=== PATIENT | male | born 1970 | race Hispanic/Latino ===

== ENCOUNTER 2021-02-16 10:00 | Inpatient (IN) | payer OTHER ==
[2021-03-21] MEDS ORDERED: Fentanyl 250 MCG/5 ML VIAL ONE (06:39)
[2021-03-21] MEDS ORDERED: PROPOFOL 200 MG/20 ML VIAL ONE (06:43)
[2021-03-21] MEDS ORDERED: Rocuronium Bromide 10 MG/ML (10ML VIAL) ONE (06:43)
[2021-03-21] MEDS ORDERED: Ondansetron PF 4 MG/2 ML Vial ONE (06:43)
[2021-03-21] MEDS ORDERED: Dexamethasone 20 MG/5 ML VIAL ONE (06:43)
[2021-03-21] MEDS ORDERED: PHENYLEPHRINE-NS 100 MCG/ML 10 ML SYRINGE ONE ×2 (06:43→09:42)
[2021-03-21] MEDS ORDERED: Lidocaine 1% PF 5 ML VIAL ONE (06:43)
[2021-03-21] MEDS ORDERED: Meperidine HCl/PF 25 MG/ML VIAL SLOW IVP PRN (07:04)
[2021-03-21] MEDS ORDERED: Promethazine HCl 25 MG/ML VIAL SLOW IVP PRN (07:04)
[2021-03-21] MEDS ORDERED: Bupivacaine 0.25% HCL 30 ML VIAL ONE (07:04)
[2021-03-21] MEDS ORDERED: Promethazine HCl 25 MG/ML VIAL IM PRN ×2 (07:04)
[2021-03-21] MEDS ORDERED: Ondansetron HCl/PF 4 MG/2 ML Vial IVP PRN (07:04)
[2021-03-21] MEDS ORDERED: diphenhydrAMINE 25 MG CAP PO PRN (07:04)
[2021-03-21] MEDS ORDERED: Lidocaine 1% w/Epinephrine 1:100K 20 ML VIAL ONE (07:04)
[2021-03-21] MEDS ORDERED: HYDROmorphone 2 MG/ML VIAL SLOW IVP PRN (07:04)
[2021-03-21] MEDS ORDERED: diphenhydrAMINE 50 MG/ML VIAL IVP PRN (07:04)
[2021-03-21] MEDS ORDERED: Morphine Sulfate 2 MG/ML SYRINGE SLOW IVP PRN (07:04)
[2021-03-21] MEDS ORDERED: fentaNYL Citrate/PF 2,000 MCG in Sodium Chloride 0.9% 60 ML IV PRN (07:04)
[2021-03-21] MEDS ORDERED: Ondansetron PF 4 MG/2 ML Vial IVP PRN (07:04)
[2021-03-21] MEDS ORDERED: Zolpidem Tartrate 5 MG TAB PO PRN (07:04)
[2021-03-21] MEDS ORDERED: diphenhydrAMINE 50 MG/ML VIAL IM PRN (07:04)
[2021-03-21] MEDS ORDERED: Naloxone HCl 0.4 mg/ml Vial IV PRN (07:04)
[2021-03-21] MEDS ORDERED: SUGAMMADEX SODIUM 500 MG/5 ML VIAL ONE (07:14)
[2021-03-21] MEDS ORDERED: Communication Order-Pharmacy FS SCH (07:15)
[2021-03-21] MEDS ORDERED: hydrALAZINE 20 MG/ML VIAL SLOW IVP PRN (11:09)
[2021-03-21] MEDS ORDERED: Dextrose 50% Abboject 50 ML SYRINGE SLOW IVP PRN (11:09)
[2021-03-21] MEDS ORDERED: Sodium Chloride 0.9% 1,000 ML IV SCH (11:09)
[2021-03-21] MEDS ORDERED: Dextrose 5% in Water 1,000 ML IV PRN (11:09)
[2021-03-21] MEDS ORDERED: Aspirin 81 mg Enteric Coated Tablet PO SCH (12:15)
[2021-03-21] MEDS ORDERED: Docusate 100 MG CAP PO SCH (12:15)
[2021-03-21 16:06] VITALS: BMI 30.2
[2021-03-21] MEDS: Sevelamer Carbonate 800 MG TAB PO SCH ×2 (16:22→16:31)
[2021-03-21] MEDS: Insulin Regular 300 UNITS/3 ML VIAL SC PRN ×2 (16:31→22:57)
[2021-03-21 20:15] LABS: #Lymphocytes 0.8 thou/uL (1.20-3.40); #Monocytes 0.8 thou/uL (0.11-0.59); #Neutrophils 16.7 thou/uL (1.40-6.50); %Eosinophils 0.1 % (0.0-10.0); %Lymphocytes 4.6 % (21.0-51.0); %Monocytes 4.3 % (0.0-10.0); Hemoglobin 9.8 g/dL (14.0-18.0); Mean Corpuscular HGB CONC 33.5 g/dL (32.0-36.0); Mean Corpuscular Hemoglobin 31.2 pg (27.0-31.0); Mean Corpuscular Volume 93.3 fL (78.0-98.0); Mean Platelet Volume 6.9 fL (7.4-10.4); Platelet Count 300 thou/uL (130-400); RBC Distribution Width 15.9 % (11.5-14.5); Red Blood Cell (RBC) Count 3.15 mill/uL (4.70-6.10); White Blood Cell (WBC) Count 18.3 thou/uL (4.8-10.8)
[2021-03-21 20:34] LABS: Albumin 3.6 g/dL (3.5-5.0); Anion Gap 24 mmol/L (10-20); BUN (Urea Nitrogen) 70 mg/dL (8.4-25.7); BUN/Creatinine Ratio 4.06; Calc. Creatinine Clearance 6 mL/min (70-130); Calcium 7.7 mg/dL (7.8-10.44); Carbon Dioxide 18 mmol/L (22-29); Chloride 100 mmol/L (98-107); Glucose 283 mg/dL (70-105); Phosphorus 5.9 mg/dL (2.3-4.7); Sodium 135 mmol/L (136-145)
[2021-03-21 20:41] LABS: Potassium 6.9 mmol/L (3.5-5.1)
[2021-03-21] MEDS: hydrALAZINE 25 MG TAB PO SCH (22:54)
[2021-03-21] MEDS: Famotidine/PF 20 mg/2ml Vial SLOW IVP SCH (22:55)
[2021-03-21] MEDS: Docusate 100 MG CAP PO SCH (22:55)
[2021-03-22] MEDS: Insulin Regular 300 UNITS/3 ML VIAL SC PRN ×5 (03:46→21:22)
[2021-03-22 07:33] LABS: #Lymphocytes 1.2 thou/uL (1.20-3.40); #Monocytes 1.2 thou/uL (0.11-0.59); #Neutrophils 11.6 thou/uL (1.40-6.50); %Basophils 0.1 % (0.0-1.0); %Lymphocytes 8.6 % (21.0-51.0); %Monocytes 8.3 % (0.0-10.0); %Neutrophils 83.1 % (42.0-75.0); Hemoglobin 8.9 g/dL (14.0-18.0); Mean Corpuscular HGB CONC 32.5 g/dL (32.0-36.0); Mean Corpuscular Hemoglobin 30.8 pg (27.0-31.0); Mean Platelet Volume 7.4 fL (7.4-10.4); Platelet Count 313 thou/uL (130-400); RBC Distribution Width 15.9 % (11.5-14.5); Red Blood Cell (RBC) Count 2.89 mill/uL (4.70-6.10)
[2021-03-22 07:54] LABS: Anion Gap 22 mmol/L (10-20); BUN (Urea Nitrogen) 74 mg/dL (8.4-25.7); Calc. Creatinine Clearance 6 mL/min (70-130); Calcium 7.7 mg/dL (7.8-10.44); Carbon Dioxide 19 mmol/L (22-29); Chloride 100 mmol/L (98-107); Glucose 222 mg/dL (70-105); Potassium 5.6 mmol/L (3.5-5.1); Sodium 135 mmol/L (136-145)
[2021-03-22] MEDS: Enoxaparin Sodium 30 MG/0.3 ML SYRINGE SC SCH (08:47)
[2021-03-22] MEDS: Losartan 25 MG TAB PO SCH (08:48)
[2021-03-22] MEDS: Multivit, Therapeutic 1 TAB PO SCH (08:48)
[2021-03-22] MEDS: Calcitriol 0.25 MCG CAP PO SCH (08:48)
[2021-03-22] MEDS: Aspirin 81 mg Enteric Coated Tablet PO SCH (08:48)
[2021-03-22] MEDS: Sevelamer Carbonate 800 MG TAB PO SCH ×3 (08:48→17:05)
[2021-03-22] MEDS: Docusate 100 MG CAP PO SCH ×2 (08:49→20:56)
[2021-03-22] MEDS ORDERED: Dextrose 50% Abboject 50 ML SYRINGE SLOW IVP PRN (13:41)
[2021-03-22] MEDS ORDERED: Dextrose 5% in Water 1,000 ML IV PRN (13:41)
[2021-03-22 19:12] LABS: Albumin 3.4 g/dL (3.5-5.0); Anion Gap 19 mmol/L (10-20); BUN (Urea Nitrogen) 72 mg/dL (8.4-25.7); Calc. Creatinine Clearance 6 mL/min (70-130); Calcium 7.8 mg/dL (7.8-10.44); Carbon Dioxide 23 mmol/L (22-29); Chloride 99 mmol/L (98-107); Glucose 235 mg/dL (70-105); Phosphorus 6.6 mg/dL (2.3-4.7); Potassium 5.1 mmol/L (3.5-5.1); Sodium 136 mmol/L (136-145)
[2021-03-22] MEDS: hydrALAZINE 25 MG TAB PO SCH (20:56)
[2021-03-22] MEDS: Famotidine/PF 20 mg/2ml Vial SLOW IVP SCH (20:56)
[2021-03-23 07:58] LABS: Albumin 3.2 g/dL (3.5-5.0); Anion Gap 20 mmol/L (10-20); BUN (Urea Nitrogen) 76 mg/dL (8.4-25.7); Calc. Creatinine Clearance 6 mL/min (70-130); Calcium 7.8 mg/dL (7.8-10.44); Carbon Dioxide 22 mmol/L (22-29); Chloride 99 mmol/L (98-107); Glucose 125 mg/dL (70-105); Phosphorus 7.9 mg/dL (2.3-4.7); Potassium 5.2 mmol/L (3.5-5.1); Sodium 136 mmol/L (136-145)
[2021-03-23 08:01] LABS: #Basophils 0.1 thou/uL (0.0-0.2); #Eosinphils 0.2 thou/uL (0.0-0.7); #Monocytes 0.9 thou/uL (0.11-0.59); #Neutrophils 8.4 thou/uL (1.40-6.50); %Basophils 0.5 % (0.0-1.0); %Eosinophils 1.4 % (0.0-10.0); %Lymphocytes 17.6 % (21.0-51.0); %Monocytes 7.4 % (0.0-10.0); %Neutrophils 73.2 % (42.0-75.0); Hemoglobin 8.6 g/dL (14.0-18.0); Mean Corpuscular HGB CONC 33.7 g/dL (32.0-36.0); Mean Corpuscular Hemoglobin 31.9 pg (27.0-31.0); Mean Corpuscular Volume 94.7 fL (78.0-98.0); Mean Platelet Volume 7.1 fL (7.4-10.4); Platelet Count 252 thou/uL (130-400); RBC Distribution Width 15.9 % (11.5-14.5); White Blood Cell (WBC) Count 11.5 thou/uL (4.8-10.8)
[2021-03-23] MEDS ORDERED: traMADol HCl 50 MG TAB PO PRN (08:43)
[2021-03-23] MEDS: Losartan 25 MG TAB PO SCH (08:52)
[2021-03-23] MEDS: Enoxaparin Sodium 30 MG/0.3 ML SYRINGE SC SCH (08:53)
[2021-03-23] MEDS: Lantus 1000 UNITS/10 ML VIAL SC SCH (08:53)
[2021-03-23] MEDS: Sevelamer Carbonate 800 MG TAB PO SCH ×3 (08:53→17:44)
[2021-03-23] MEDS: Calcitriol 0.25 MCG CAP PO SCH (08:53)
[2021-03-23] MEDS: Multivit, Therapeutic 1 TAB PO SCH (08:53)
[2021-03-23] MEDS: Docusate 100 MG CAP PO SCH ×2 (08:53→21:10)
[2021-03-23] MEDS: Aspirin 81 mg Enteric Coated Tablet PO SCH (08:53)
[2021-03-23] MEDS ORDERED: Non-Formulary Item 1 EACH (Insulin Glargine,Hum.Rec.Anlog [Basaglar Kwikpen U-100] 100 UN SQ SCH (09:00)
[2021-03-23] MEDS ORDERED: Morphine 4 MG/ML VIAL SLOW IVP PRN ×2 (09:04→17:17)
[2021-03-23] MEDS: HYDROcodone/Acetaminophen 5/325 mg Tablet PO PRN ×2 (11:22→15:09)
[2021-03-23] MEDS: Insulin Regular 300 UNITS/3 ML VIAL SC PRN (13:14)
[2021-03-23] MEDS ORDERED: HYDROcodone/Acetaminophen 5/325 mg Tablet PO PRN (17:16)
[2021-03-23] MEDS: hydrALAZINE 25 MG TAB PO SCH (21:10)
[2021-03-23] MEDS: Famotidine/PF 20 mg/2ml Vial SLOW IVP SCH (21:11)
[2021-03-24] MEDS: Insulin Regular 300 UNITS/3 ML VIAL SC PRN (06:18)
[2021-03-24 06:32] LABS: Hemoglobin 8.8 g/dL (14.0-18.0); Mean Corpuscular HGB CONC 35.1 g/dL (32.0-36.0); Mean Corpuscular Hemoglobin 32.8 pg (27.0-31.0); Mean Corpuscular Volume 93.3 fL (78.0-98.0); Platelet Count 226 thou/uL (130-400); RBC Distribution Width 16.1 % (11.5-14.5); Red Blood Cell (RBC) Count 2.69 mill/uL (4.70-6.10); White Blood Cell (WBC) Count 10.1 thou/uL (4.8-10.8)
[2021-03-24 06:50] LABS: Anion Gap 19 mmol/L (10-20); BUN (Urea Nitrogen) 84 mg/dL (8.4-25.7); Calc. Creatinine Clearance 6 mL/min (70-130); Calcium 8.1 mg/dL (7.8-10.44); Carbon Dioxide 24 mmol/L (22-29); Glucose 205 mg/dL (70-105)
[2021-03-24 06:57] LABS: Chloride 97 mmol/L (98-107); Potassium 4.9 mmol/L (3.5-5.1); Sodium 135 mmol/L (136-145)
[2021-03-24] MEDS: Sevelamer Carbonate 800 MG TAB PO SCH ×2 (07:55→11:33)
[2021-03-24] MEDS: Losartan 25 MG TAB PO SCH (07:55)
[2021-03-24] MEDS: Calcitriol 0.25 MCG CAP PO SCH (07:55)
[2021-03-24] MEDS: Multivit, Therapeutic 1 TAB PO SCH (07:55)
[2021-03-24] MEDS: Aspirin 81 mg Enteric Coated Tablet PO SCH (07:55)
[2021-03-24] MEDS: Docusate 100 MG CAP PO SCH (07:55)
[2021-03-24] MEDS: Enoxaparin Sodium 30 MG/0.3 ML SYRINGE SC SCH (07:56)
[2021-03-24] MEDS: Lantus 1000 UNITS/10 ML VIAL SC SCH (07:56)
[2021-03-24] MEDS ORDERED: cloNIDine 0.2 MG TAB PO SCH ×2 (12:00→21:00)
[2021-03-24 13:41] VITALS: BP 183/81; TEMP 97.8
[2021-03-24] MEDS ORDERED: Carvedilol 25 MG TAB PO SCH (13:45)
== END 2021-03-24 14:17 | disposition home or self-care (01) | DRG 656 ==
LOC: EDSTATUS 02-21 10:00 → SURG A 03-21 06:19 → T4-A 03-21 15:05
PROVIDERS: ADMIT Urology; ATTEND Urology
PROC: 0TT00ZZ Resection of Right Kidney, Open Approach (ICD-10-PCS; principal; 2021-03-21)
PROC: 8E0WXCZ Robotic Assisted Procedure of Trunk Region (ICD-10-PCS; 2021-03-21)
PROC: 5A1D70Z Performance of Urinary Filtration, Intermittent, Less than 6 Hours Per Day (ICD-10-PCS; 2021-03-21)
DX: C64.1 Malignant neoplasm of right kidney, except renal pelvis (principal); N18.6 End stage renal disease; Z20.822 Contact with and (suspected) exposure to COVID-19; E11.22 Type 2 diabetes mellitus with diabetic chronic kidney disease; N52.9 Male erectile dysfunction, unspecified; E78.5 Hyperlipidemia, unspecified; I25.10 Atherosclerotic heart disease of native coronary artery without angina pectoris; E11.40 Type 2 diabetes mellitus with diabetic neuropathy, unspecified; E66.9 Obesity, unspecified; Z99.2 Dependence on renal dialysis; Z68.31 Body mass index [BMI] 31.0-31.9, adult; Z79.82 Long term (current) use of aspirin; Z79.4 Long term (current) use of insulin; Z79.899 Other long term (current) drug therapy
CPT/HCPCS: 36415; 36416; 80048; 80069; 85025; 85027; 86850; 86900; 86901; 88307; 90945; G0257; J0690; J1100; J1650; J1815; J2405; J2704; J3010; S0020; S0028

== ENCOUNTER 2021-03-16 08:12 | Outpatient (CLI) | payer OTHER ==
[2021-03-16 10:47] LABS: Hemoglobin 11.8 g/dL (13.5-17.5); Mean Corpuscular HGB CONC 32.6 g/dL (32.0-36.0); Mean Corpuscular Hemoglobin 30.3 pg (27.0-33.0); Mean Corpuscular Volume 92.8 fl (81.2-95.1); Platelet Count 290 10x3/uL (150-450); White Blood Cell (WBC) Count 8.4 10x3/uL (3.5-10.5)
[2021-03-16 11:11] LABS: Anion Gap 22 mmol/L (10-20); BUN (Urea Nitrogen) 61 mg/dL (8.4-25.7); Calc. Creatinine Clearance 0 mL/min (70-130); Calcium 9.2 mg/dL (7.8-10.44); Carbon Dioxide 27 mmol/L (22-29); Chloride 102 mmol/L (98-107); Glucose 120 mg/dL (70-105); PTT 26.5 sec (22.0-33.0); Potassium 5.7 mmol/L (3.5-5.1); Prothrombin Time 10.9 sec (9.5-12.1); Sodium 145 mmol/L (136-145)
[2021-03-16 18:44] LABS: SARS-CoV-2 PCR by NAA Not Detected (NotDetected)
== END 2021-03-16 08:13 | disposition home or self-care (01) ==
LOC: LABBT 08:12
PROVIDERS: ATTEND Urology
DX: Z01.818 Encounter for other preprocedural examination (principal); C61 Malignant neoplasm of prostate; Z20.822 Contact with and (suspected) exposure to COVID-19
CPT/HCPCS: 80048; 85027; 85610; 85730; 86850; 86900; 86901; 87635; 93005; 93010; U0003; U0005

== ENCOUNTER 2021-06-23 10:22 | Outpatient (CLI) | payer OTHER ==
[2021-06-24 01:30] LABS: SARS-CoV-2 PCR by NAA Not Detected (NotDetected)
== END 2021-06-23 10:23 | disposition home or self-care (01) ==
LOC: LABBT 10:22
PROVIDERS: ATTEND Internal Medicine Hematology & Oncology
DX: Z01.812 Encounter for preprocedural laboratory examination (principal); Z20.822 Contact with and (suspected) exposure to COVID-19
CPT/HCPCS: U0003; U0005

== ENCOUNTER 2021-07-06 08:11 | Day surgery (SDC) | payer OTHER ==
[2021-07-06 08:51] LABS: INR-International Normal Ratio 1.1
[2021-07-06 08:52] LABS: PTT 33.9 sec (22.9-36.1)
[2021-07-06 09:32] VITALS: BMI 29.3
[2021-07-06 09:37] VITALS: TEMP 98
[2021-07-06 13:04] VITALS: BP 179/111
== END 2021-07-06 13:15 | disposition home or self-care (01) ==
LOC: CT 08:11
PROVIDERS: ATTEND Internal Medicine Hematology & Oncology
PROC: 0TB13ZX Excision of Left Kidney, Percutaneous Approach, Diagnostic (ICD-10-PCS; principal; 2021-07-06)
DX: C64.2 Malignant neoplasm of left kidney, except renal pelvis (principal); E11.9 Type 2 diabetes mellitus without complications; I10 Essential (primary) hypertension; F10.11 Alcohol abuse, in remission; N28.9 Disorder of kidney and ureter, unspecified; Z86.73 Personal history of transient ischemic attack (TIA), and cerebral infarction without residual deficits; Z79.4 Long term (current) use of insulin; Z79.82 Long term (current) use of aspirin; Z79.899 Other long term (current) drug therapy; Z90.5 Acquired absence of kidney; Z99.2 Dependence on renal dialysis
CPT/HCPCS: 50200; 77012; 85610; 85730; 88305; 88333; 88334; 88341; 88342

== ENCOUNTER → 2021-07-17 | Day surgery (SDC) | payer OTHER | LOC: CT 09:18 → RAD 09:19 | DX: C64.2 Malignant neoplasm of left kidney, except renal pelvis (principal) | CPT/HCPCS: 71260; 78306; A9503 ==

== ENCOUNTER 2021-09-29 17:17 | Inpatient (IN) | payer OTHER ==
[2021-09-29 17:55] LABS: #Basophils 0.1 thou/uL (0.0-0.2); #Eosinphils 0.4 thou/uL (0.0-0.7); #Lymphocytes 1.4 thou/uL (1.20-3.40); #Monocytes 1.3 thou/uL (0.11-0.59); #Neutrophils 7.7 thou/uL (1.40-6.50); %Basophils 0.9 % (0.0-1.0); %Eosinophils 3.4 % (0.0-10.0); %Lymphocytes 12.7 % (21.0-51.0); %Neutrophils 70.9 % (42.0-75.0); Hemoglobin 9.6 g/dL (14.0-18.0); Mean Corpuscular HGB CONC 35.4 g/dL (32.0-36.0); Mean Corpuscular Hemoglobin 31.3 pg (27.0-31.0); Mean Corpuscular Volume 88.3 fL (78.0-98.0); Mean Platelet Volume 6.6 fL (7.4-10.4); Platelet Count 345 thou/uL (130-400); RBC Distribution Width 15.9 % (11.5-14.5); Red Blood Cell (RBC) Count 3.05 mill/uL (4.70-6.10); White Blood Cell (WBC) Count 10.8 thou/uL (4.8-10.8)
[2021-09-29] MEDS ORDERED: Vancomycin 25 MG/ML Oral SOLN PO SCH (18:15)
[2021-09-29 18:19] LABS: ALT (SGPT) 25 U/L (8-55); AST (SGOT) 24 U/L (5-34); Albumin 3.1 g/dL (3.5-5.0); Alkaline Phosphatase 100 U/L (40-110); Anion Gap 20 mmol/L (10-20); BUN (Urea Nitrogen) 44 mg/dL (8.4-25.7); Bilirubin, Total 0.5 mg/dL (0.2-1.2); Calc. Creatinine Clearance 0 mL/min (70-130); Calcium 7.8 mg/dL (7.8-10.44); Carbon Dioxide 16 mmol/L (22-29); Chloride 101 mmol/L (98-107); Glucose 197 mg/dL (70-105); Protein, Total 6.1 g/dL (6.0-8.3); Sodium 133 mmol/L (136-145)
[2021-09-29 22:05] LABS: SARS-CoV-2 NAA Rapid Test Not Detected (NotDetected)
[2021-09-29] MEDS ORDERED: Dextrose 5% in Water 1,000 ML IV PRN (22:23)
[2021-09-29] MEDS ORDERED: Dextrose 50% Abboject 50 ML SYRINGE SLOW IVP PRN (22:23)
[2021-09-29] MEDS ORDERED: Cholestyramine/Aspartame 4 gm Packet PO SCH (22:30)
[2021-09-30] MEDS: Lactated Ringer's 1,000 ML IV SCH ×4 (01:38→21:11)
[2021-09-30] MEDS: Vancomycin 25 MG/ML Oral SOLN PO SCH ×4 (04:13→21:10)
[2021-09-30 04:58] LABS: Anion Gap 16 mmol/L (10-20); BUN (Urea Nitrogen) 47 mg/dL (8.4-25.7); Calc. Creatinine Clearance 6 mL/min (70-130); Calcium 8.3 mg/dL (7.8-10.44); Carbon Dioxide 17 mmol/L (22-29); Chloride 104 mmol/L (98-107); Glucose 157 mg/dL (70-105); Potassium 3.7 mmol/L (3.5-5.1); Sodium 133 mmol/L (136-145)
[2021-09-30] MEDS: Sevelamer Carbonate 800 MG TAB PO SCH ×3 (08:23→16:12)
[2021-09-30] MEDS: Aspirin 81 mg Enteric Coated Tablet PO SCH (09:37)
[2021-09-30] MEDS: Heparin 5,000 UNITS/ML VIAL SC SCH ×3 (09:37→21:05)
[2021-09-30] MEDS: Cholestyramine/Aspartame 4 gm Packet PO SCH ×2 (09:38→21:11)
[2021-09-30] MEDS: Calcitriol 0.25 MCG CAP PO SCH (09:38)
[2021-09-30] MEDS ORDERED: EPSOM SALT TOP PRN (14:11)
[2021-10-01] MEDS: Vancomycin 25 MG/ML Oral SOLN PO SCH ×4 (03:37→21:49)
[2021-10-01 07:26] LABS: ALT (SGPT) 27 U/L (8-55); AST (SGOT) 18 U/L (5-34); Albumin 2.8 g/dL (3.5-5.0); Alkaline Phosphatase 105 U/L (40-110); Anion Gap 19 mmol/L (10-20); BUN (Urea Nitrogen) 39 mg/dL (8.4-25.7); Bilirubin, Total 0.4 mg/dL (0.2-1.2); Calc. Creatinine Clearance 6 mL/min (70-130); Calcium 7.8 mg/dL (7.8-10.44); Carbon Dioxide 19 mmol/L (22-29); Chloride 102 mmol/L (98-107); Globulin 2.8 g/dL (2.4-3.5); Glucose 198 mg/dL (70-105); Potassium 3.5 mmol/L (3.5-5.1); Protein, Total 5.6 g/dL (6.0-8.3); Sodium 136 mmol/L (136-145)
[2021-10-01] MEDS: Sevelamer Carbonate 800 MG TAB PO SCH ×3 (09:25→17:27)
[2021-10-01] MEDS: Cholestyramine/Aspartame 4 gm Packet PO SCH ×2 (09:25→22:44)
[2021-10-01] MEDS: Aspirin 81 mg Enteric Coated Tablet PO SCH (09:25)
[2021-10-01] MEDS: Calcitriol 0.25 MCG CAP PO SCH (09:26)
[2021-10-01] MEDS: Heparin 5,000 UNITS/ML VIAL SC SCH ×3 (09:26→21:48)
[2021-10-01] MEDS: Lactated Ringer's 1,000 ML IV SCH (15:17)
[2021-10-01] MEDS: HumaLOG 300 UNITS/3 ML VIAL SC PRN (21:50)
[2021-10-02] MEDS: Lactated Ringer's 1,000 ML IV SCH ×3 (03:25→22:05)
[2021-10-02] MEDS: Vancomycin 25 MG/ML Oral SOLN PO SCH ×4 (04:04→22:04)
[2021-10-02 05:44] LABS: ALT (SGPT) 24 U/L (8-55); AST (SGOT) 16 U/L (5-34); Albumin 2.7 g/dL (3.5-5.0); Alkaline Phosphatase 92 U/L (40-110); Anion Gap 16 mmol/L (10-20); BUN (Urea Nitrogen) 34 mg/dL (8.4-25.7); Bilirubin, Total 0.4 mg/dL (0.2-1.2); Calc. Creatinine Clearance 6 mL/min (70-130); Calcium 8.3 mg/dL (7.8-10.44); Carbon Dioxide 22 mmol/L (22-29); Chloride 100 mmol/L (98-107); Globulin 3.5 g/dL (2.4-3.5); Glucose 191 mg/dL (70-105); Protein, Total 6.2 g/dL (6.0-8.3); Sodium 135 mmol/L (136-145)
[2021-10-02] MEDS: HumaLOG 300 UNITS/3 ML VIAL SC PRN (06:23)
[2021-10-02] MEDS: Aspirin 81 mg Enteric Coated Tablet PO SCH (08:37)
[2021-10-02] MEDS: Heparin 5,000 UNITS/ML VIAL SC SCH ×3 (08:37→22:05)
[2021-10-02] MEDS: Calcitriol 0.25 MCG CAP PO SCH (08:37)
[2021-10-02] MEDS: Sevelamer Carbonate 800 MG TAB PO SCH ×3 (08:37→16:31)
[2021-10-02] MEDS: Cholestyramine/Aspartame 4 gm Packet PO SCH ×2 (11:00→23:02)
[2021-10-02 14:37] LABS: Anion Gap 13 mmol/L (10-20); BUN (Urea Nitrogen) 35 mg/dL (8.4-25.7); Calc. Creatinine Clearance 6 mL/min (70-130); Carbon Dioxide 24 mmol/L (22-29); Chloride 100 mmol/L (98-107); Glucose 190 mg/dL (70-105); Potassium 3.1 mmol/L (3.5-5.1); Sodium 134 mmol/L (136-145)
[2021-10-02] MEDS ORDERED: Potassium Chloride 20 MEQ TAB PO SCH (15:30)
[2021-10-03] MEDS: Vancomycin 25 MG/ML Oral SOLN PO SCH ×4 (03:19→21:06)
[2021-10-03 05:15] LABS: Phosphorus 2.7 mg/dL (2.3-4.7)
[2021-10-03 05:21] LABS: ALT (SGPT) 20 U/L (8-55); AST (SGOT) 16 U/L (5-34); Albumin 2.6 g/dL (3.5-5.0); Alkaline Phosphatase 94 U/L (40-110); Anion Gap 13 mmol/L (10-20); BUN (Urea Nitrogen) 32 mg/dL (8.4-25.7); Bilirubin, Total 0.4 mg/dL (0.2-1.2); Calc. Creatinine Clearance 6 mL/min (70-130); Carbon Dioxide 23 mmol/L (22-29); Chloride 100 mmol/L (98-107); Globulin 3.2 g/dL (2.4-3.5); Glucose 181 mg/dL (70-105); Protein, Total 5.8 g/dL (6.0-8.3); Sodium 133 mmol/L (136-145)
[2021-10-03 05:26] LABS: Potassium 2.9 mmol/L (3.5-5.1)
[2021-10-03] MEDS: HumaLOG 300 UNITS/3 ML VIAL SC PRN ×3 (06:04→17:47)
[2021-10-03] MEDS ORDERED: Potassium Chloride 20 MEQ TAB PO SCH ×3 (06:30→17:45)
[2021-10-03] MEDS: Sevelamer Carbonate 800 MG TAB PO SCH ×3 (09:03→16:44)
[2021-10-03] MEDS: Calcitriol 0.25 MCG CAP PO SCH (09:04)
[2021-10-03] MEDS: Aspirin 81 mg Enteric Coated Tablet PO SCH (09:04)
[2021-10-03] MEDS: Heparin 5,000 UNITS/ML VIAL SC SCH ×3 (09:05→21:05)
[2021-10-03] MEDS: Cholestyramine/Aspartame 4 gm Packet PO SCH ×2 (10:29→22:25)
[2021-10-03 11:52] LABS: Anion Gap 15 mmol/L (10-20); BUN (Urea Nitrogen) 31 mg/dL (8.4-25.7); Calc. Creatinine Clearance 6 mL/min (70-130); Calcium 7.8 mg/dL (7.8-10.44); Carbon Dioxide 21 mmol/L (22-29); Chloride 99 mmol/L (98-107); Glucose 164 mg/dL (70-105); Magnesium 1.2 mg/dL (1.6-2.6); Sodium 132 mmol/L (136-145)
[2021-10-03 12:02] LABS: Potassium 2.9 mmol/L (3.5-5.1)
[2021-10-03] MEDS ORDERED: Magnesium 2 GM/50 ML 2 GM in Premix Bag 1 BAG IVPB SCH (12:15)
[2021-10-03 17:02] LABS: Anion Gap 14 mmol/L (10-20); BUN (Urea Nitrogen) 32 mg/dL (8.4-25.7); Calc. Creatinine Clearance 6 mL/min (70-130); Calcium 7.8 mg/dL (7.8-10.44); Carbon Dioxide 21 mmol/L (22-29); Chloride 100 mmol/L (98-107); Glucose 169 mg/dL (70-105); Potassium 3.2 mmol/L (3.5-5.1); Sodium 132 mmol/L (136-145)
[2021-10-03] MEDS: Lactated Ringer's 1,000 ML IV SCH (19:23)
[2021-10-04] MEDS: Vancomycin 25 MG/ML Oral SOLN PO SCH ×2 (03:11→10:30)
[2021-10-04 04:56] LABS: ALT (SGPT) 20 U/L (8-55); AST (SGOT) 17 U/L (5-34); Alkaline Phosphatase 107 U/L (40-110); Anion Gap 15 mmol/L (10-20); BUN (Urea Nitrogen) 32 mg/dL (8.4-25.7); Bilirubin, Total 0.4 mg/dL (0.2-1.2); Calc. Creatinine Clearance 6 mL/min (70-130); Calcium 8.4 mg/dL (7.8-10.44); Carbon Dioxide 21 mmol/L (22-29); Chloride 100 mmol/L (98-107); Globulin 3.4 g/dL (2.4-3.5); Glucose 198 mg/dL (70-105); Magnesium 1.6 mg/dL (1.6-2.6); Potassium 3.5 mmol/L (3.5-5.1); Protein, Total 6.4 g/dL (6.0-8.3); Sodium 132 mmol/L (136-145)
[2021-10-04] MEDS: HumaLOG 300 UNITS/3 ML VIAL SC PRN ×2 (06:11→20:40)
[2021-10-04] MEDS ORDERED: Potassium Chloride 20 MEQ TAB PO SCH (08:00)
[2021-10-04] MEDS: Aspirin 81 mg Enteric Coated Tablet PO SCH (09:20)
[2021-10-04] MEDS: Sevelamer Carbonate 800 MG TAB PO SCH ×3 (09:20→16:28)
[2021-10-04] MEDS: Calcitriol 0.25 MCG CAP PO SCH (09:21)
[2021-10-04] MEDS: Cholestyramine/Aspartame 4 gm Packet PO SCH ×2 (10:30→23:17)
[2021-10-04] MEDS: Heparin 5,000 UNITS/ML VIAL SC SCH ×3 (10:31→20:22)
[2021-10-04] MEDS: Lactated Ringer's 1,000 ML IV SCH ×2 (10:34→20:57)
[2021-10-04] MEDS ORDERED: Fidaxomicin 200 MG TAB PO SCH (12:30)
[2021-10-04 14:09] LABS: #Basophils 0.1 thou/uL (0.0-0.2); #Eosinphils 0.3 thou/uL (0.0-0.7); #Lymphocytes 1.4 thou/uL (1.20-3.40); #Monocytes 0.9 thou/uL (0.11-0.59); #Neutrophils 4.9 thou/uL (1.40-6.50); %Basophils 0.9 % (0.0-1.0); %Eosinophils 4.3 % (0.0-10.0); %Lymphocytes 18.8 % (21.0-51.0); %Monocytes 11.7 % (0.0-10.0); %Neutrophils 64.3 % (42.0-75.0); Hemoglobin 8.6 g/dL (14.0-18.0); Mean Corpuscular HGB CONC 34.4 g/dL (32.0-36.0); Mean Corpuscular Hemoglobin 30.3 pg (27.0-31.0); Mean Platelet Volume 5.7 fL (7.4-10.4); Platelet Count 296 thou/uL (130-400); RBC Distribution Width 15.2 % (11.5-14.5); Red Blood Cell (RBC) Count 2.85 mill/uL (4.70-6.10); White Blood Cell (WBC) Count 7.6 thou/uL (4.8-10.8)
[2021-10-04] MEDS: Fidaxomicin 200 MG TAB PO SCH (20:22)
[2021-10-04 23:06] LABS: #Eosinphils 0.2 thou/uL (0.0-0.7); #Lymphocytes 0.6 thou/uL (1.20-3.40); #Neutrophils 4.7 thou/uL (1.40-6.50); %Basophils 0.1 % (0.0-1.0); %Eosinophils 4.3 % (0.0-10.0); %Lymphocytes 10.5 % (21.0-51.0); %Monocytes 0.8 % (0.0-10.0); %Neutrophils 84.3 % (42.0-75.0); Hemoglobin 8.9 g/dL (14.0-18.0); Mean Corpuscular HGB CONC 35.2 g/dL (32.0-36.0); Mean Corpuscular Hemoglobin 30.8 pg (27.0-31.0); Mean Corpuscular Volume 87.4 fL (78.0-98.0); Mean Platelet Volume 5.8 fL (7.4-10.4); Platelet Count 296 thou/uL (130-400); RBC Distribution Width 14.9 % (11.5-14.5); White Blood Cell (WBC) Count 5.5 thou/uL (4.8-10.8)
[2021-10-04 23:26] LABS: Anion Gap 16 mmol/L (10-20); BUN (Urea Nitrogen) 32 mg/dL (8.4-25.7); CRP (Inflammatory) 7.06 mg/dL (= or < 0.5); Calc. Creatinine Clearance 6 mL/min (70-130); Carbon Dioxide 21 mmol/L (22-29); Chloride 97 mmol/L (98-107); Glucose 153 mg/dL (70-105); Magnesium 1.3 mg/dL (1.6-2.6); Potassium 3.4 mmol/L (3.5-5.1); Sodium 131 mmol/L (136-145)
[2021-10-05] MEDS: Ondansetron ODT 4 MG TAB PO PRN ×3 (01:14→20:50)
[2021-10-05] MEDS: Acetaminophen 325 MG TAB PO PRN ×3 (02:12→22:16)
[2021-10-05] MEDS ORDERED: Lactated Ringer's 500 ML IV ONE (04:30)
[2021-10-05 04:51] LABS: #Basophils 0.1 thou/uL (0.0-0.2); #Lymphocytes 0.5 thou/uL (1.20-3.40); #Monocytes 0.5 thou/uL (0.11-0.59); %Basophils 0.5 % (0.0-1.0); %Eosinophils 0.4 % (0.0-10.0); %Lymphocytes 5.1 % (21.0-51.0); %Monocytes 4.6 % (0.0-10.0); %Neutrophils 89.3 % (42.0-75.0); Hemoglobin 8.2 g/dL (14.0-18.0); Mean Corpuscular Hemoglobin 30.3 pg (27.0-31.0); Mean Corpuscular Volume 86.4 fL (78.0-98.0); Mean Platelet Volume 6.2 fL (7.4-10.4); Platelet Count 269 thou/uL (130-400); White Blood Cell (WBC) Count 10.1 thou/uL (4.8-10.8)
[2021-10-05] MEDS: Lactated Ringer's 1,000 ML IV SCH ×4 (04:55→20:36)
[2021-10-05 05:01] LABS: ALT (SGPT) 14 U/L (8-55); AST (SGOT) 14 U/L (5-34); Albumin 2.5 g/dL (3.5-5.0); Alkaline Phosphatase 93 U/L (40-110); Anion Gap 14 mmol/L (10-20); BUN (Urea Nitrogen) 31 mg/dL (8.4-25.7); Bilirubin, Total 0.5 mg/dL (0.2-1.2); Calc. Creatinine Clearance 6 mL/min (70-130); Calcium 7.8 mg/dL (7.8-10.44); Carbon Dioxide 21 mmol/L (22-29); Chloride 97 mmol/L (98-107); Globulin 2.9 g/dL (2.4-3.5); Glucose 207 mg/dL (70-105); Protein, Total 5.4 g/dL (6.0-8.3); Sodium 129 mmol/L (136-145)
[2021-10-05] MEDS: HumaLOG 300 UNITS/3 ML VIAL SC PRN (06:20)
[2021-10-05] MEDS ORDERED: Potassium Chloride 20 MEQ TAB PO SCH (06:45)
[2021-10-05] MEDS: Calcitriol 0.25 MCG CAP PO SCH (09:26)
[2021-10-05] MEDS: Sevelamer Carbonate 800 MG TAB PO SCH ×3 (09:26→17:19)
[2021-10-05] MEDS: Fidaxomicin 200 MG TAB PO SCH ×2 (09:26→20:35)
[2021-10-05] MEDS: Aspirin 81 mg Enteric Coated Tablet PO SCH (09:26)
[2021-10-05] MEDS: Heparin 5,000 UNITS/ML VIAL SC SCH ×3 (09:27→20:35)
[2021-10-05 09:38] LABS: Magnesium 1.2 mg/dL (1.6-2.6)
[2021-10-05] MEDS: Cholestyramine/Aspartame 4 gm Packet PO SCH ×3 (11:23→23:14)
[2021-10-05 17:57] LABS: Anion Gap 15 mmol/L (10-20); BUN (Urea Nitrogen) 31 mg/dL (8.4-25.7); Calc. Creatinine Clearance 6 mL/min (70-130); Carbon Dioxide 21 mmol/L (22-29); Chloride 97 mmol/L (98-107); Glucose 157 mg/dL (70-105); Potassium 3.8 mmol/L (3.5-5.1); Sodium 129 mmol/L (136-145)
[2021-10-05] MEDS ORDERED: MEROPENEM 1 GM/50 ML 1 GM in Premix Bag 1 BAG IVPB SCH (18:45)
[2021-10-05 19:19] LABS: SARS-CoV-2 NAA Rapid Test Not Detected (NotDetected)
[2021-10-05] MEDS ORDERED: Meropenem 1 GM in Sodium Chloride 0.9% 100 ML IVPB SCH (20:45)
[2021-10-05] MEDS ORDERED: Ibuprofen 600 MG TAB PO SCH (22:53)
[2021-10-06] MEDS: Meropenem 500 MG in Sodium Chloride 0.9% 100 ML IVPB SCH (02:24)
[2021-10-06] MEDS: Lactated Ringer's 1,000 ML IV SCH ×4 (04:19→21:14)
[2021-10-06 05:30] LABS: ALT (SGPT) 18 U/L (8-55); AST (SGOT) 22 U/L (5-34); Albumin 2.4 g/dL (3.5-5.0); Alkaline Phosphatase 95 U/L (40-110); Anion Gap 18 mmol/L (10-20); BUN (Urea Nitrogen) 30 mg/dL (8.4-25.7); Bilirubin, Total 0.6 mg/dL (0.2-1.2); Calc. Creatinine Clearance 6 mL/min (70-130); Calcium 8.1 mg/dL (7.8-10.44); Carbon Dioxide 19 mmol/L (22-29); Chloride 97 mmol/L (98-107); Globulin 3.1 g/dL (2.4-3.5); Glucose 161 mg/dL (70-105); Potassium 3.9 mmol/L (3.5-5.1); Protein, Total 5.5 g/dL (6.0-8.3); Sodium 130 mmol/L (136-145)
[2021-10-06 07:29] LABS: Magnesium 1.5 mg/dL (1.6-2.6)
[2021-10-06] MEDS ORDERED: Potassium Chloride 20 MEQ TAB PO SCH ×2 (08:00→09:00)
[2021-10-06] MEDS: Aspirin 81 mg Enteric Coated Tablet PO SCH (08:34)
[2021-10-06] MEDS: Fidaxomicin 200 MG TAB PO SCH ×2 (08:34→21:14)
[2021-10-06] MEDS: Heparin 5,000 UNITS/ML VIAL SC SCH ×3 (08:34→21:14)
[2021-10-06] MEDS: Sevelamer Carbonate 800 MG TAB PO SCH ×3 (08:34→16:50)
[2021-10-06] MEDS: Calcitriol 0.25 MCG CAP PO SCH (08:34)
[2021-10-06] MEDS: EPOETIN ALFA-EPBX (ESRD) 4,000 UNIT/ML VIAL SC SCH (08:35)
[2021-10-06] MEDS ORDERED: Epoetin (ESRD) 20,000 UNITS/ML SC SCH (09:00)
[2021-10-06] MEDS: HumaLOG 300 UNITS/3 ML VIAL SC PRN (12:19)
[2021-10-06] MEDS: Cholestyramine/Aspartame 4 gm Packet PO SCH (12:19)
[2021-10-06] MEDS: Ondansetron ODT 4 MG TAB PO PRN ×2 (12:43→21:14)
[2021-10-06] MEDS: Acetaminophen 500 MG TAB PO PRN (12:43)
[2021-10-06] MEDS ORDERED: Magnesium 2 GM/50 ML 2 GM in Premix Bag 1 BAG IVPB SCH (17:30)
[2021-10-07] MEDS: Cholestyramine/Aspartame 4 gm Packet PO SCH ×2 (00:03→11:25)
[2021-10-07] MEDS: Lactated Ringer's 1,000 ML IV SCH ×3 (02:19→15:34)
[2021-10-07] MEDS: Meropenem 500 MG in Sodium Chloride 0.9% 100 ML IVPB SCH (02:19)
[2021-10-07 05:14] LABS: ALT (SGPT) 15 U/L (8-55); AST (SGOT) 16 U/L (5-34); Alkaline Phosphatase 71 U/L (40-110); Anion Gap 12 mmol/L (10-20); BUN (Urea Nitrogen) 30 mg/dL (8.4-25.7); Bilirubin, Total 0.3 mg/dL (0.2-1.2); Calc. Creatinine Clearance 7 mL/min (70-130); Calcium 7.5 mg/dL (7.8-10.44); Carbon Dioxide 26 mmol/L (22-29); Chloride 97 mmol/L (98-107); Globulin 2.5 g/dL (2.4-3.5); Glucose 234 mg/dL (70-105); Potassium 3.1 mmol/L (3.5-5.1); Protein, Total 4.5 g/dL (6.0-8.3); Sodium 132 mmol/L (136-145)
[2021-10-07] MEDS ORDERED: Potassium Chloride 20 MEQ TAB PO SCH ×3 (06:00→10:45)
[2021-10-07 06:55] LABS: Phosphorus 2.7 mg/dL (2.3-4.7)
[2021-10-07] MEDS ORDERED: Potassium Chloride 20 MEQ in Premix Bag 1 BAG IVPB SCH ×2 (08:00→09:00)
[2021-10-07] MEDS: Heparin 5,000 UNITS/ML VIAL SC SCH ×4 (08:46→21:15)
[2021-10-07] MEDS: Sevelamer Carbonate 800 MG TAB PO SCH ×5 (08:47→17:51)
[2021-10-07] MEDS: Ondansetron ODT 4 MG TAB PO SCH ×3 (08:47→22:21)
[2021-10-07] MEDS: Aspirin 81 mg Enteric Coated Tablet PO SCH (08:47)
[2021-10-07] MEDS: Calcitriol 0.25 MCG CAP PO SCH (08:47)
[2021-10-07] MEDS: Fidaxomicin 200 MG TAB PO SCH ×2 (08:55→21:15)
[2021-10-07 10:51] LABS: Band 16 % (5-11); Eosinophils 5 % (0-10); Hemoglobin 7.5 g/dL (14.0-18.0); Lymphocytes 5 % (21-51); MDiff Complete? YES; Mean Corpuscular HGB CONC 34.6 g/dL (32.0-36.0); Mean Corpuscular Hemoglobin 30.7 pg (27.0-31.0); Mean Corpuscular Volume 88.6 fL (78.0-98.0); Monocytes 14 % (0-10); Neutrophil 60 % (42-75); Platelet Count 174 thou/uL (130-400); RBC Distribution Width 15.1 % (11.5-14.5); Red Blood Cell (RBC) Count 2.44 mill/uL (4.70-6.10); White Blood Cell (WBC) Count 7.8 thou/uL (4.8-10.8)
[2021-10-07] MEDS: HumaLOG 300 UNITS/3 ML VIAL SC PRN (11:26)
[2021-10-07] MEDS: Metoclopramide HCl 10 MG/2 ML VIAL IVP SCH (21:15)
[2021-10-08] MEDS: Lactated Ringer's 1,000 ML IV SCH ×3 (02:50→22:00)
[2021-10-08] MEDS: Meropenem 500 MG in Sodium Chloride 0.9% 100 ML IVPB SCH (03:43)
[2021-10-08] MEDS: Ondansetron ODT 4 MG TAB PO SCH (03:44)
[2021-10-08] MEDS: Metoclopramide HCl 10 MG/2 ML VIAL IVP SCH ×3 (06:04→21:57)
[2021-10-08 07:36] LABS: ALT (SGPT) 13 U/L (8-55); AST (SGOT) 16 U/L (5-34); Alkaline Phosphatase 71 U/L (40-110); Anion Gap 13 mmol/L (10-20); BUN (Urea Nitrogen) 25 mg/dL (8.4-25.7); Bilirubin, Total 0.3 mg/dL (0.2-1.2); Calc. Creatinine Clearance 9 mL/min (70-130); Calcium 7.2 mg/dL (7.8-10.44); Carbon Dioxide 26 mmol/L (22-29); Chloride 98 mmol/L (98-107); Globulin 2.4 g/dL (2.4-3.5); Glucose 244 mg/dL (70-105); Magnesium 1.6 mg/dL (1.6-2.6); Protein, Total 4.4 g/dL (6.0-8.3); Sodium 134 mmol/L (136-145)
[2021-10-08 07:40] LABS: Potassium 2.7 mmol/L (3.5-5.1)
[2021-10-08] MEDS ORDERED: Magnesium 2 GM/50 ML 2 GM in Premix Bag 1 BAG IVPB SCH (07:45)
[2021-10-08] MEDS ORDERED: Potassium Chloride 20 MEQ TAB PO SCH (07:45)
[2021-10-08 08:22] LABS: Band 8 % (5-11); Eosinophils 9 % (0-10); Hemoglobin 7.2 g/dL (14.0-18.0); Lymphocytes 16 % (21-51); MDiff Complete? YES; Mean Corpuscular HGB CONC 35.5 g/dL (32.0-36.0); Mean Corpuscular Volume 87.4 fL (78.0-98.0); Mean Platelet Volume 6.3 fL (7.4-10.4); Monocytes 11 % (0-10); Neutrophil 56 % (42-75); Platelet Count 204 thou/uL (130-400); Red Blood Cell (RBC) Count 2.31 mill/uL (4.70-6.10); White Blood Cell (WBC) Count 7.6 thou/uL (4.8-10.8)
[2021-10-08] MEDS: Heparin 5,000 UNITS/ML VIAL SC SCH ×3 (08:51→20:31)
[2021-10-08] MEDS: Sevelamer Carbonate 800 MG TAB PO SCH ×3 (08:52→17:38)
[2021-10-08] MEDS: Calcitriol 0.25 MCG CAP PO SCH (08:52)
[2021-10-08] MEDS: Aspirin 81 mg Enteric Coated Tablet PO SCH (08:52)
[2021-10-08] MEDS: Fidaxomicin 200 MG TAB PO SCH ×2 (08:53→20:31)
[2021-10-08 16:49] LABS: Anion Gap 13 mmol/L (10-20); BUN (Urea Nitrogen) 25 mg/dL (8.4-25.7); Calc. Creatinine Clearance 8 mL/min (70-130); Calcium 7.1 mg/dL (7.8-10.44); Carbon Dioxide 24 mmol/L (22-29); Chloride 99 mmol/L (98-107); Glucose 179 mg/dL (70-105); Potassium 3.2 mmol/L (3.5-5.1); Sodium 133 mmol/L (136-145)
[2021-10-08] MEDS: HumaLOG 300 UNITS/3 ML VIAL SC PRN (21:57)
[2021-10-09] MEDS: Meropenem 500 MG in Sodium Chloride 0.9% 100 ML IVPB SCH (02:51)
[2021-10-09 05:23] LABS: #Eosinphils 0.2 thou/uL (0.0-0.7); #Monocytes 0.9 thou/uL (0.11-0.59); #Neutrophils 4.5 thou/uL (1.40-6.50); %Basophils 0.5 % (0.0-1.0); %Eosinophils 2.7 % (0.0-10.0); %Lymphocytes 14.9 % (21.0-51.0); %Monocytes 13.1 % (0.0-10.0); %Neutrophils 68.9 % (42.0-75.0); Hemoglobin 7.2 g/dL (14.0-18.0); Mean Corpuscular HGB CONC 34.2 g/dL (32.0-36.0); Mean Corpuscular Hemoglobin 29.8 pg (27.0-31.0); Mean Corpuscular Volume 87.2 fL (78.0-98.0); Mean Platelet Volume 6.5 fL (7.4-10.4); Platelet Count 214 thou/uL (130-400); RBC Distribution Width 14.9 % (11.5-14.5); Red Blood Cell (RBC) Count 2.43 mill/uL (4.70-6.10); White Blood Cell (WBC) Count 6.5 thou/uL (4.8-10.8)
[2021-10-09] MEDS: HumaLOG 300 UNITS/3 ML VIAL SC PRN ×3 (05:46→21:30)
[2021-10-09] MEDS: Metoclopramide HCl 10 MG/2 ML VIAL IVP SCH ×3 (05:47→21:30)
[2021-10-09 05:49] LABS: ALT (SGPT) 14 U/L (8-55); AST (SGOT) 22 U/L (5-34); Alkaline Phosphatase 75 U/L (40-110); Anion Gap 13 mmol/L (10-20); BUN (Urea Nitrogen) 23 mg/dL (8.4-25.7); Bilirubin, Total 0.2 mg/dL (0.2-1.2); Calc. Creatinine Clearance 9 mL/min (70-130); Calcium 6.9 mg/dL (7.8-10.44); Carbon Dioxide 25 mmol/L (22-29); Chloride 98 mmol/L (98-107); Globulin 2.4 g/dL (2.4-3.5); Glucose 227 mg/dL (70-105); Magnesium 1.7 mg/dL (1.6-2.6); Protein, Total 4.4 g/dL (6.0-8.3); Sodium 133 mmol/L (136-145)
[2021-10-09] MEDS ORDERED: Potassium Chloride 20 MEQ TAB PO SCH (06:30)
[2021-10-09] MEDS: Aspirin 81 mg Enteric Coated Tablet PO SCH (08:31)
[2021-10-09] MEDS: Fidaxomicin 200 MG TAB PO SCH ×2 (08:31→21:29)
[2021-10-09] MEDS: Calcitriol 0.25 MCG CAP PO SCH (08:31)
[2021-10-09] MEDS: Heparin 5,000 UNITS/ML VIAL SC SCH ×3 (08:31→21:29)
[2021-10-09] MEDS: Sevelamer Carbonate 800 MG TAB PO SCH ×3 (08:31→17:23)
[2021-10-09] MEDS ORDERED: Magnesium 2 GM/50 ML 2 GM in Premix Bag 1 BAG IVPB SCH (10:30)
[2021-10-09 13:51] LABS: Anion Gap 13 mmol/L (10-20); BUN (Urea Nitrogen) 22 mg/dL (8.4-25.7); Calc. Creatinine Clearance 8 mL/min (70-130); Calcium 7.2 mg/dL (7.8-10.44); Carbon Dioxide 24 mmol/L (22-29); Chloride 98 mmol/L (98-107); Glucose 135 mg/dL (70-105); Potassium 3.3 mmol/L (3.5-5.1); Sodium 132 mmol/L (136-145)
[2021-10-09] MEDS: Lactated Ringer's 1,000 ML IV SCH (21:29)
[2021-10-09] MEDS ORDERED: Melatonin 3 MG TAB PO PRN (22:34)
[2021-10-10] MEDS: Meropenem 500 MG in Sodium Chloride 0.9% 100 ML IVPB SCH (03:39)
[2021-10-10 04:52] LABS: #Basophils 0.1 thou/uL (0.0-0.2); #Eosinphils 0.3 thou/uL (0.0-0.7); #Lymphocytes 1.2 thou/uL (1.20-3.40); #Monocytes 0.8 thou/uL (0.11-0.59); #Neutrophils 6.4 thou/uL (1.40-6.50); %Basophils 0.7 % (0.0-1.0); %Eosinophils 3.1 % (0.0-10.0); %Lymphocytes 13.4 % (21.0-51.0); %Monocytes 9.3 % (0.0-10.0); %Neutrophils 73.6 % (42.0-75.0); Hemoglobin 6.5 g/dL (14.0-18.0); Mean Corpuscular HGB CONC 33.5 g/dL (32.0-36.0); Mean Corpuscular Hemoglobin 29.7 pg (27.0-31.0); Mean Corpuscular Volume 88.5 fL (78.0-98.0); Mean Platelet Volume 6.1 fL (7.4-10.4); Platelet Count 223 thou/uL (130-400); Red Blood Cell (RBC) Count 2.19 mill/uL (4.70-6.10); White Blood Cell (WBC) Count 8.7 thou/uL (4.8-10.8)
[2021-10-10 05:12] LABS: ALT (SGPT) 12 U/L (8-55); AST (SGOT) 15 U/L (5-34); Albumin 1.8 g/dL (3.5-5.0); Alkaline Phosphatase 64 U/L (40-110); Anion Gap 11 mmol/L (10-20); BUN (Urea Nitrogen) 24 mg/dL (8.4-25.7); Bilirubin, Total 0.2 mg/dL (0.2-1.2); Calc. Creatinine Clearance 9 mL/min (70-130); Carbon Dioxide 26 mmol/L (22-29); Chloride 97 mmol/L (98-107); Globulin 2.3 g/dL (2.4-3.5); Glucose 224 mg/dL (70-105); Protein, Total 4.1 g/dL (6.0-8.3); Sodium 131 mmol/L (136-145)
[2021-10-10 05:20] LABS: Potassium 2.9 mmol/L (3.5-5.1)
[2021-10-10] MEDS: Metoclopramide HCl 10 MG/2 ML VIAL IVP SCH ×3 (05:50→21:29)
[2021-10-10] MEDS: HumaLOG 300 UNITS/3 ML VIAL SC PRN ×3 (05:58→18:14)
[2021-10-10] MEDS ORDERED: Potassium Chloride 20 MEQ TAB PO SCH (07:00)
[2021-10-10] MEDS ORDERED: Potassium Chloride 20 MEQ in Premix Bag 1 BAG IVPB SCH (07:00)
[2021-10-10] MEDS: Potassium Chloride 20 MEQ in Premix Bag 1 BAG IVPB SCH ×2 (07:31→16:43)
[2021-10-10] MEDS: Sevelamer Carbonate 800 MG TAB PO SCH ×3 (09:23→16:43)
[2021-10-10] MEDS: Aspirin 81 mg Enteric Coated Tablet PO SCH (09:23)
[2021-10-10] MEDS: Fidaxomicin 200 MG TAB PO SCH ×2 (09:23→21:29)
[2021-10-10] MEDS: Calcitriol 0.25 MCG CAP PO SCH (09:23)
[2021-10-10] MEDS: Heparin 5,000 UNITS/ML VIAL SC SCH ×3 (09:24→21:29)
[2021-10-10 10:40] LABS: Iron 33 ug/dL (65-175); Iron Binding Capacity, Total 86 mcg/dL (261-462)
[2021-10-10 12:42] LABS: Glucose 182 mg/dL (70-105)
[2021-10-10 14:48] LABS: Anion Gap 9 mmol/L (10-20); BUN (Urea Nitrogen) 26 mg/dL (8.4-25.7); Calc. Creatinine Clearance 9 mL/min (70-130); Calcium 6.6 mg/dL (7.8-10.44); Carbon Dioxide 27 mmol/L (22-29); Chloride 98 mmol/L (98-107); Glucose 211 mg/dL (70-105); Potassium 3.5 mmol/L (3.5-5.1); Sodium 130 mmol/L (136-145)
[2021-10-10] MEDS: Lactated Ringer's 1,000 ML IV SCH (15:20)
[2021-10-10 17:56] LABS: Glucose 165 mg/dL (70-105)
[2021-10-10 19:09] LABS: Hemoglobin 6.9 g/dL (14.0-18.0)
[2021-10-10 22:53] LABS: Glucose 174 mg/dL (70-105)
[2021-10-11] MEDS: Meropenem 500 MG in Sodium Chloride 0.9% 100 ML IVPB SCH (03:37)
[2021-10-11 04:45] LABS: #Basophils 0.1 thou/uL (0.0-0.2); #Eosinphils 0.4 thou/uL (0.0-0.7); #Lymphocytes 1.3 thou/uL (1.20-3.40); #Neutrophils 9.1 thou/uL (1.40-6.50); %Basophils 0.5 % (0.0-1.0); %Eosinophils 3.1 % (0.0-10.0); %Lymphocytes 11.3 % (21.0-51.0); %Neutrophils 77.1 % (42.0-75.0); Hemoglobin 8.2 g/dL (14.0-18.0); Mean Corpuscular HGB CONC 34.9 g/dL (32.0-36.0); Mean Corpuscular Volume 88.9 fL (78.0-98.0); Platelet Count 237 thou/uL (130-400); Red Blood Cell (RBC) Count 2.65 mill/uL (4.70-6.10); White Blood Cell (WBC) Count 11.8 thou/uL (4.8-10.8)
[2021-10-11 05:27] LABS: ALT (SGPT) 9 U/L (8-55); AST (SGOT) 13 U/L (5-34); Albumin 1.9 g/dL (3.5-5.0); Alkaline Phosphatase 64 U/L (40-110); Anion Gap 9 mmol/L (10-20); BUN (Urea Nitrogen) 26 mg/dL (8.4-25.7); Bilirubin, Total 0.2 mg/dL (0.2-1.2); Calc. Creatinine Clearance 8 mL/min (70-130); Calcium 6.9 mg/dL (7.8-10.44); Carbon Dioxide 27 mmol/L (22-29); Chloride 98 mmol/L (98-107); Globulin 2.4 g/dL (2.4-3.5); Glucose 206 mg/dL (70-105); Magnesium 1.8 mg/dL (1.6-2.6); Potassium 3.3 mmol/L (3.5-5.1); Protein, Total 4.3 g/dL (6.0-8.3); Sodium 131 mmol/L (136-145)
[2021-10-11] MEDS: Lactated Ringer's 1,000 ML IV SCH (05:28)
[2021-10-11] MEDS: Acetaminophen 500 MG TAB PO PRN ×2 (05:28→15:59)
[2021-10-11] MEDS: Metoclopramide HCl 10 MG/2 ML VIAL IVP SCH ×3 (05:29→21:42)
[2021-10-11] MEDS: HumaLOG 300 UNITS/3 ML VIAL SC PRN ×2 (05:36→16:57)
[2021-10-11] MEDS ORDERED: Potassium Chloride 20 MEQ TAB PO SCH (07:00)
[2021-10-11] MEDS ORDERED: Magnesium 2 GM/50 ML 2 GM in Premix Bag 1 BAG IVPB SCH (08:30)
[2021-10-11] MEDS: Heparin 5,000 UNITS/ML VIAL SC SCH ×3 (08:31→21:42)
[2021-10-11] MEDS: Sevelamer Carbonate 800 MG TAB PO SCH ×3 (08:33→15:57)
[2021-10-11] MEDS: Calcitriol 0.25 MCG CAP PO SCH (08:33)
[2021-10-11] MEDS: Aspirin 81 mg Enteric Coated Tablet PO SCH (08:33)
[2021-10-11] MEDS: Fidaxomicin 200 MG TAB PO SCH ×2 (08:34→21:42)
[2021-10-11] MEDS ORDERED: Metoclopramide HCl 10 MG/2 ML VIAL IVP SCH (10:23)
[2021-10-12] MEDS: Lactated Ringer's 1,000 ML IV SCH (02:21)
[2021-10-12] MEDS: Meropenem 500 MG in Sodium Chloride 0.9% 100 ML IVPB SCH (02:22)
[2021-10-12 04:43] LABS: #Eosinphils 0.6 thou/uL (0.0-0.7); #Lymphocytes 1.6 thou/uL (1.20-3.40); #Neutrophils 10.5 thou/uL (1.40-6.50); %Basophils 0.3 % (0.0-1.0); %Eosinophils 4.5 % (0.0-10.0); %Lymphocytes 11.5 % (21.0-51.0); %Monocytes 7.4 % (0.0-10.0); %Neutrophils 76.2 % (42.0-75.0); Hemoglobin 8.3 g/dL (14.0-18.0); Mean Corpuscular HGB CONC 35.4 g/dL (32.0-36.0); Mean Corpuscular Hemoglobin 31.4 pg (27.0-31.0); Mean Corpuscular Volume 88.6 fL (78.0-98.0); Platelet Count 290 thou/uL (130-400); RBC Distribution Width 14.3 % (11.5-14.5); Red Blood Cell (RBC) Count 2.64 mill/uL (4.70-6.10); White Blood Cell (WBC) Count 13.8 thou/uL (4.8-10.8)
[2021-10-12 05:13] LABS: ALT (SGPT) 9 U/L (8-55); AST (SGOT) 14 U/L (5-34); Albumin 1.9 g/dL (3.5-5.0); Alkaline Phosphatase 61 U/L (40-110); Anion Gap 12 mmol/L (10-20); BUN (Urea Nitrogen) 27 mg/dL (8.4-25.7); Bilirubin, Total 0.2 mg/dL (0.2-1.2); Calc. Creatinine Clearance 9 mL/min (70-130); Calcium 7.2 mg/dL (7.8-10.44); Carbon Dioxide 23 mmol/L (22-29); Chloride 98 mmol/L (98-107); Globulin 2.5 g/dL (2.4-3.5); Glucose 183 mg/dL (70-105); Potassium 3.5 mmol/L (3.5-5.1); Protein, Total 4.4 g/dL (6.0-8.3); Sodium 129 mmol/L (136-145)
[2021-10-12] MEDS: HumaLOG 300 UNITS/3 ML VIAL SC PRN (05:38)
[2021-10-12] MEDS: Metoclopramide HCl 10 MG/2 ML VIAL IVP SCH ×3 (05:38→21:54)
[2021-10-12 06:59] LABS: Magnesium 2.1 mg/dL (1.6-2.6)
[2021-10-12 08:23] LABS: Hemoglobin A1c 6.5 % (4.0-6.0)
[2021-10-12] MEDS: Acetaminophen 500 MG TAB PO PRN (08:40)
[2021-10-12] MEDS: Calcitriol 0.25 MCG CAP PO SCH (08:41)
[2021-10-12] MEDS: Aspirin 81 mg Enteric Coated Tablet PO SCH (08:44)
[2021-10-12] MEDS: Sevelamer Carbonate 800 MG TAB PO SCH ×3 (08:44→17:25)
[2021-10-12] MEDS: Fidaxomicin 200 MG TAB PO SCH ×2 (08:44→21:53)
[2021-10-12] MEDS: Potassium Chloride 20 MEQ TAB PO SCH (08:45)
[2021-10-12] MEDS: Heparin 5,000 UNITS/ML VIAL SC SCH ×3 (08:45→21:53)
[2021-10-12] MEDS ORDERED: Lantus 1000 UNITS/10 ML VIAL SC SCH (10:30)
[2021-10-12] MEDS: Melatonin 3 MG TAB PO SCH (21:53)
[2021-10-13] MEDS: Meropenem 500 MG in Sodium Chloride 0.9% 100 ML IVPB SCH (03:36)
[2021-10-13] MEDS: Metoclopramide HCl 10 MG/2 ML VIAL IVP SCH ×2 (06:12→17:30)
[2021-10-13 06:22] LABS: #Eosinphils 0.4 thou/uL (0.0-0.7); #Lymphocytes 1.5 thou/uL (1.20-3.40); #Neutrophils 7.8 thou/uL (1.40-6.50); %Basophils 0.4 % (0.0-1.0); %Monocytes 8.9 % (0.0-10.0); %Neutrophils 72.7 % (42.0-75.0); Hemoglobin 7.1 g/dL (14.0-18.0); Mean Corpuscular HGB CONC 35.3 g/dL (32.0-36.0); Mean Corpuscular Hemoglobin 31.4 pg (27.0-31.0); Mean Corpuscular Volume 88.8 fL (78.0-98.0); Mean Platelet Volume 5.7 fL (7.4-10.4); Platelet Count 298 thou/uL (130-400); RBC Distribution Width 14.3 % (11.5-14.5); Red Blood Cell (RBC) Count 2.27 mill/uL (4.70-6.10); White Blood Cell (WBC) Count 10.8 thou/uL (4.8-10.8)
[2021-10-13 06:44] LABS: ALT (SGPT) 7 U/L (8-55); AST (SGOT) 12 U/L (5-34); Albumin 1.8 g/dL (3.5-5.0); Alkaline Phosphatase 58 U/L (40-110); Anion Gap 11 mmol/L (10-20); BUN (Urea Nitrogen) 29 mg/dL (8.4-25.7); Bilirubin, Total 0.2 mg/dL (0.2-1.2); Calc. Creatinine Clearance 8 mL/min (70-130); Carbon Dioxide 27 mmol/L (22-29); Chloride 98 mmol/L (98-107); Globulin 2.4 g/dL (2.4-3.5); Glucose 129 mg/dL (70-105); Potassium 3.6 mmol/L (3.5-5.1); Protein, Total 4.2 g/dL (6.0-8.3); Sodium 132 mmol/L (136-145)
[2021-10-13 08:01] LABS: SARS-CoV-2 PCR by NAA Not Detected (NotDetected)
[2021-10-13] MEDS: Calcitriol 0.25 MCG CAP PO SCH (08:42)
[2021-10-13] MEDS: Sevelamer Carbonate 800 MG TAB PO SCH ×3 (08:42→17:02)
[2021-10-13] MEDS: Heparin 5,000 UNITS/ML VIAL SC SCH ×3 (08:42→21:29)
[2021-10-13] MEDS: Acetaminophen 500 MG TAB PO PRN (08:42)
[2021-10-13] MEDS: Fidaxomicin 200 MG TAB PO SCH ×2 (08:43→21:29)
[2021-10-13] MEDS: Potassium Chloride 20 MEQ TAB PO SCH (08:43)
[2021-10-13] MEDS: Lactated Ringer's 1,000 ML IV SCH ×2 (08:43→21:30)
[2021-10-13] MEDS: Aspirin 81 mg Enteric Coated Tablet PO SCH (08:43)
[2021-10-13] MEDS: Lantus 1000 UNITS/10 ML VIAL SC SCH (09:05)
[2021-10-13] MEDS: EPOETIN ALFA-EPBX (ESRD) 4,000 UNIT/ML VIAL SC SCH (09:07)
[2021-10-13] MEDS ORDERED: Metoclopramide HCl 10 MG/2 ML VIAL IVP SCH ×3 (09:33→10:30)
[2021-10-13] MEDS ORDERED: Iopamidol 370 76% 100 ML VIAL ONE (09:54)
[2021-10-13 13:48] LABS: Hemoglobin 7.4 g/dL (14.0-18.0); Mean Corpuscular HGB CONC 34.4 g/dL (32.0-36.0); Mean Corpuscular Hemoglobin 30.9 pg (27.0-31.0); Mean Corpuscular Volume 89.8 fL (78.0-98.0); Mean Platelet Volume 5.5 fL (7.4-10.4); Platelet Count 276 thou/uL (130-400); RBC Distribution Width 14.7 % (11.5-14.5); White Blood Cell (WBC) Count 11.9 thou/uL (4.8-10.8)
[2021-10-13] MEDS: Melatonin 3 MG TAB PO SCH (21:29)
[2021-10-14] MEDS: Metoclopramide HCl 10 MG/2 ML VIAL IVP SCH ×2 (00:37→05:30)
[2021-10-14] MEDS: Meropenem 500 MG in Sodium Chloride 0.9% 100 ML IVPB SCH (03:21)
[2021-10-14 04:52] LABS: #Eosinphils 0.5 thou/uL (0.0-0.7); #Lymphocytes 1.4 thou/uL (1.20-3.40); #Neutrophils 7.1 thou/uL (1.40-6.50); %Basophils 0.3 % (0.0-1.0); %Eosinophils 4.5 % (0.0-10.0); %Lymphocytes 13.9 % (21.0-51.0); %Monocytes 10.4 % (0.0-10.0); Hemoglobin 6.8 g/dL (14.0-18.0); Mean Corpuscular HGB CONC 32.8 g/dL (32.0-36.0); Mean Corpuscular Hemoglobin 29.7 pg (27.0-31.0); Mean Corpuscular Volume 90.5 fL (78.0-98.0); Mean Platelet Volume 5.8 fL (7.4-10.4); Platelet Count 315 thou/uL (130-400); RBC Distribution Width 14.9 % (11.5-14.5); Red Blood Cell (RBC) Count 2.29 mill/uL (4.70-6.10)
[2021-10-14 05:16] LABS: ALT (SGPT) Less than 7 U/L (8-55); AST (SGOT) 10 U/L (5-34); Albumin 1.8 g/dL (3.5-5.0); Alkaline Phosphatase 59 U/L (40-110); Anion Gap 13 mmol/L (10-20); BUN (Urea Nitrogen) 29 mg/dL (8.4-25.7); Bilirubin, Total Less than 0.2 mg/dL (0.2-1.2); Calc. Creatinine Clearance 8 mL/min (70-130); Calcium 6.9 mg/dL (7.8-10.44); Carbon Dioxide 25 mmol/L (22-29); Chloride 97 mmol/L (98-107); Globulin 2.3 g/dL (2.4-3.5); Glucose 155 mg/dL (70-105); Potassium 3.7 mmol/L (3.5-5.1); Protein, Total 4.1 g/dL (6.0-8.3); Sodium 131 mmol/L (136-145)
[2021-10-14] MEDS ORDERED: Metoclopramide HCl 10 MG/2 ML VIAL IVP PRN (07:30)
[2021-10-14] MEDS: Potassium Chloride 20 MEQ TAB PO SCH (09:17)
[2021-10-14] MEDS: Sevelamer Carbonate 800 MG TAB PO SCH ×3 (09:17→17:34)
[2021-10-14] MEDS: Fidaxomicin 200 MG TAB PO SCH ×2 (09:18→21:23)
[2021-10-14] MEDS: Calcitriol 0.25 MCG CAP PO SCH (09:18)
[2021-10-14] MEDS: Aspirin 81 mg Enteric Coated Tablet PO SCH (09:18)
[2021-10-14] MEDS: Heparin 5,000 UNITS/ML VIAL SC SCH ×3 (09:18→21:23)
[2021-10-14] MEDS: Lantus 1000 UNITS/10 ML VIAL SC SCH (09:26)
[2021-10-14] MEDS: Melatonin 3 MG TAB PO SCH (21:23)
[2021-10-15] MEDS: Meropenem 500 MG in Sodium Chloride 0.9% 100 ML IVPB SCH (03:58)
[2021-10-15 04:43] LABS: #Eosinphils 0.4 thou/uL (0.0-0.7); #Lymphocytes 1.4 thou/uL (1.20-3.40); #Monocytes 1.1 thou/uL (0.11-0.59); #Neutrophils 7.3 thou/uL (1.40-6.50); %Lymphocytes 13.5 % (21.0-51.0); %Monocytes 10.9 % (0.0-10.0); %Neutrophils 71.6 % (42.0-75.0); Hemoglobin 7.7 g/dL (14.0-18.0); Mean Corpuscular HGB CONC 34.2 g/dL (32.0-36.0); Mean Corpuscular Hemoglobin 31.1 pg (27.0-31.0); Mean Platelet Volume 5.9 fL (7.4-10.4); Platelet Count 315 thou/uL (130-400); RBC Distribution Width 14.6 % (11.5-14.5); Red Blood Cell (RBC) Count 2.48 mill/uL (4.70-6.10); White Blood Cell (WBC) Count 10.1 thou/uL (4.8-10.8)
[2021-10-15 05:08] LABS: ALT (SGPT) Less than 7 U/L (8-55); AST (SGOT) 11 U/L (5-34); Albumin 1.7 g/dL (3.5-5.0); Alkaline Phosphatase 59 U/L (40-110); Anion Gap 13 mmol/L (10-20); BUN (Urea Nitrogen) 27 mg/dL (8.4-25.7); Bilirubin, Total Less than 0.2 mg/dL (0.2-1.2); Calc. Creatinine Clearance 7 mL/min (70-130); Calcium 7.1 mg/dL (7.8-10.44); Carbon Dioxide 25 mmol/L (22-29); Chloride 98 mmol/L (98-107); Globulin 2.4 g/dL (2.4-3.5); Glucose 172 mg/dL (70-105); Potassium 3.6 mmol/L (3.5-5.1); Protein, Total 4.1 g/dL (6.0-8.3); Sodium 132 mmol/L (136-145)
[2021-10-15 07:08] LABS: Magnesium 1.9 mg/dL (1.6-2.6)
[2021-10-15] MEDS ORDERED: Metoclopramide HCl 10 MG TAB PO PRN (08:37)
[2021-10-15] MEDS: Sevelamer Carbonate 800 MG TAB PO SCH ×3 (09:24→17:11)
[2021-10-15] MEDS: Calcitriol 0.25 MCG CAP PO SCH (09:25)
[2021-10-15] MEDS: Potassium Chloride 20 MEQ TAB PO SCH (09:25)
[2021-10-15] MEDS: Heparin 5,000 UNITS/ML VIAL SC SCH ×3 (09:25→21:27)
[2021-10-15] MEDS: Fidaxomicin 200 MG TAB PO SCH ×2 (09:25→21:27)
[2021-10-15] MEDS: Aspirin 81 mg Enteric Coated Tablet PO SCH (09:25)
[2021-10-15] MEDS: Lantus 1000 UNITS/10 ML VIAL SC SCH (09:26)
[2021-10-15] MEDS: HumaLOG 300 UNITS/3 ML VIAL SC PRN (11:38)
[2021-10-15] MEDS: Melatonin 3 MG TAB PO SCH (21:27)
[2021-10-16 05:02] LABS: #Eosinphils 0.4 thou/uL (0.0-0.7); #Lymphocytes 1.5 thou/uL (1.20-3.40); #Monocytes 1.2 thou/uL (0.11-0.59); #Neutrophils 7.7 thou/uL (1.40-6.50); %Basophils 0.4 % (0.0-1.0); %Lymphocytes 13.8 % (21.0-51.0); %Neutrophils 70.8 % (42.0-75.0); Mean Corpuscular Hemoglobin 32.4 pg (27.0-31.0); Mean Corpuscular Volume 92.7 fL (78.0-98.0); Mean Platelet Volume 5.8 fL (7.4-10.4); Platelet Count 331 thou/uL (130-400); Red Blood Cell (RBC) Count 2.16 mill/uL (4.70-6.10); White Blood Cell (WBC) Count 10.8 thou/uL (4.8-10.8)
[2021-10-16 05:34] LABS: ALT (SGPT) Less than 7 U/L (8-55); AST (SGOT) 11 U/L (5-34); Albumin 1.7 g/dL (3.5-5.0); Alkaline Phosphatase 58 U/L (40-110); Anion Gap 10 mmol/L (10-20); BUN (Urea Nitrogen) 38 mg/dL (8.4-25.7); Bilirubin, Total Less than 0.2 mg/dL (0.2-1.2); Calc. Creatinine Clearance 8 mL/min (70-130); Calcium 7.1 mg/dL (7.8-10.44); Carbon Dioxide 26 mmol/L (22-29); Chloride 100 mmol/L (98-107); Globulin 2.3 g/dL (2.4-3.5); Glucose 189 mg/dL (70-105); Magnesium 1.9 mg/dL (1.6-2.6); Sodium 132 mmol/L (136-145)
[2021-10-16] MEDS: Aspirin 81 mg Enteric Coated Tablet PO SCH (08:54)
[2021-10-16] MEDS: Sevelamer Carbonate 800 MG TAB PO SCH ×3 (08:54→17:01)
[2021-10-16] MEDS: Potassium Chloride 20 MEQ TAB PO SCH (08:54)
[2021-10-16] MEDS: Calcitriol 0.25 MCG CAP PO SCH (08:54)
[2021-10-16] MEDS: Heparin 5,000 UNITS/ML VIAL SC SCH ×3 (08:56→21:45)
[2021-10-16] MEDS: Fidaxomicin 200 MG TAB PO SCH ×2 (08:56→21:46)
[2021-10-16] MEDS: Lantus 1000 UNITS/10 ML VIAL SC SCH (11:04)
[2021-10-16] MEDS: HumaLOG 300 UNITS/3 ML VIAL SC PRN (11:07)
[2021-10-16] MEDS: Cholestyramine/Aspartame 4 gm Packet PO SCH (17:01)
[2021-10-16] MEDS: Melatonin 3 MG TAB PO SCH (21:44)
[2021-10-16] MEDS: Acetaminophen 500 MG TAB PO PRN (21:57)
[2021-10-17 04:50] LABS: #Basophils 0.1 thou/uL (0.0-0.2); #Eosinphils 0.5 thou/uL (0.0-0.7); #Lymphocytes 2.1 thou/uL (1.20-3.40); #Monocytes 1.2 thou/uL (0.11-0.59); #Neutrophils 8.5 thou/uL (1.40-6.50); %Basophils 0.5 % (0.0-1.0); %Lymphocytes 17.3 % (21.0-51.0); %Monocytes 9.3 % (0.0-10.0); %Neutrophils 68.9 % (42.0-75.0); Hemoglobin 6.5 g/dL (14.0-18.0); Mean Corpuscular HGB CONC 34.8 g/dL (32.0-36.0); Mean Corpuscular Hemoglobin 31.5 pg (27.0-31.0); Mean Corpuscular Volume 90.5 fL (78.0-98.0); Mean Platelet Volume 5.7 fL (7.4-10.4); Platelet Count 333 thou/uL (130-400); RBC Distribution Width 14.9 % (11.5-14.5); Red Blood Cell (RBC) Count 2.05 mill/uL (4.70-6.10); White Blood Cell (WBC) Count 12.4 thou/uL (4.8-10.8)
[2021-10-17 05:24] LABS: ALT (SGPT) Less than 7 U/L (8-55); AST (SGOT) 11 U/L (5-34); Albumin 1.8 g/dL (3.5-5.0); Alkaline Phosphatase 54 U/L (40-110); Anion Gap 10 mmol/L (10-20); BUN (Urea Nitrogen) 48 mg/dL (8.4-25.7); Bilirubin, Total 0.2 mg/dL (0.2-1.2); Calc. Creatinine Clearance 8 mL/min (70-130); Carbon Dioxide 26 mmol/L (22-29); Chloride 102 mmol/L (98-107); Globulin 2.1 g/dL (2.4-3.5); Glucose 179 mg/dL (70-105); Magnesium 1.9 mg/dL (1.6-2.6); Potassium 4.1 mmol/L (3.5-5.1); Protein, Total 3.9 g/dL (6.0-8.3); Sodium 134 mmol/L (136-145)
[2021-10-17] MEDS: HumaLOG 300 UNITS/3 ML VIAL SC PRN (06:41)
[2021-10-17] MEDS: Cholestyramine/Aspartame 4 gm Packet PO SCH ×2 (08:42→16:20)
[2021-10-17] MEDS: Sevelamer Carbonate 800 MG TAB PO SCH ×3 (08:42→16:21)
[2021-10-17] MEDS: Aspirin 81 mg Enteric Coated Tablet PO SCH (08:42)
[2021-10-17] MEDS: Calcitriol 0.25 MCG CAP PO SCH (08:42)
[2021-10-17] MEDS: Potassium Chloride 20 MEQ TAB PO SCH (08:42)
[2021-10-17] MEDS: Fidaxomicin 200 MG TAB PO SCH ×2 (08:43→21:49)
[2021-10-17] MEDS: Lantus 1000 UNITS/10 ML VIAL SC SCH (08:44)
[2021-10-17] MEDS: Heparin 5,000 UNITS/ML VIAL SC SCH ×3 (08:46→21:49)
[2021-10-17 09:34] LABS: Hemoglobin 5.9 g/dL (14.0-18.0)
[2021-10-17 11:55] LABS: Glucose 128 mg/dL (70-105)
[2021-10-17 17:33] LABS: Glucose 185 mg/dL (70-105)
[2021-10-17 21:40] LABS: Glucose 193 mg/dL (70-105)
[2021-10-17] MEDS: Melatonin 3 MG TAB PO SCH (21:50)
[2021-10-18 01:25] LABS: Hemoglobin 7.7 g/dL (14.0-18.0)
[2021-10-18 05:45] LABS: #Basophils 0.1 thou/uL (0.0-0.2); #Eosinphils 0.5 thou/uL (0.0-0.7); #Lymphocytes 1.4 thou/uL (1.20-3.40); #Neutrophils 7.7 thou/uL (1.40-6.50); %Basophils 0.6 % (0.0-1.0); %Eosinophils 5.1 % (0.0-10.0); %Lymphocytes 13.1 % (21.0-51.0); %Monocytes 8.9 % (0.0-10.0); %Neutrophils 72.3 % (42.0-75.0); Hemoglobin 7.4 g/dL (14.0-18.0); Mean Corpuscular HGB CONC 35.9 g/dL (32.0-36.0); Mean Corpuscular Hemoglobin 33.3 pg (27.0-31.0); Mean Corpuscular Volume 92.8 fL (78.0-98.0); Mean Platelet Volume 6.6 fL (7.4-10.4); Platelet Count 216 thou/uL (130-400); RBC Distribution Width 14.1 % (11.5-14.5); Red Blood Cell (RBC) Count 2.22 mill/uL (4.70-6.10); White Blood Cell (WBC) Count 10.7 thou/uL (4.8-10.8)
[2021-10-18 06:12] LABS: ALT (SGPT) Less than 7 U/L (8-55); AST (SGOT) 12 U/L (5-34); Albumin 1.7 g/dL (3.5-5.0); Alkaline Phosphatase 53 U/L (40-110); Anion Gap 11 mmol/L (10-20); BUN (Urea Nitrogen) 55 mg/dL (8.4-25.7); Bilirubin, Total 0.2 mg/dL (0.2-1.2); Calc. Creatinine Clearance 7 mL/min (70-130); Calcium 7.1 mg/dL (7.8-10.44); Carbon Dioxide 26 mmol/L (22-29); Chloride 102 mmol/L (98-107); Glucose 169 mg/dL (70-105); Magnesium 1.8 mg/dL (1.6-2.6); Potassium 3.9 mmol/L (3.5-5.1); Protein, Total 3.7 g/dL (6.0-8.3); Sodium 135 mmol/L (136-145)
[2021-10-18] MEDS: Lantus 1000 UNITS/10 ML VIAL SC SCH (09:01)
[2021-10-18] MEDS: Heparin 5,000 UNITS/ML VIAL SC SCH ×3 (09:01→21:25)
[2021-10-18] MEDS: Sevelamer Carbonate 800 MG TAB PO SCH ×4 (09:02→18:19)
[2021-10-18] MEDS: Aspirin 81 mg Enteric Coated Tablet PO SCH (09:02)
[2021-10-18] MEDS: Calcitriol 0.25 MCG CAP PO SCH (09:02)
[2021-10-18] MEDS: Cholestyramine/Aspartame 4 gm Packet PO SCH ×2 (09:02→16:27)
[2021-10-18] MEDS: Potassium Chloride 20 MEQ TAB PO SCH (09:03)
[2021-10-18] MEDS: Fidaxomicin 200 MG TAB PO SCH ×2 (09:03→21:25)
[2021-10-18 09:41] LABS: Glucose 160 mg/dL (70-105)
[2021-10-18 11:58] LABS: INR-International Normal Ratio 1.2; PTT 59.6 sec (22.9-36.1); Prothrombin Time 15.7 sec (12.0-14.7)
[2021-10-18] MEDS: HumaLOG 300 UNITS/3 ML VIAL SC PRN (11:59)
[2021-10-18 12:08] LABS: Glucose 218 mg/dL (70-105)
[2021-10-18 17:23] LABS: Glucose 138 mg/dL (70-105)
[2021-10-18 21:10] LABS: Glucose 189 mg/dL (70-105)
[2021-10-18] MEDS: Melatonin 3 MG TAB PO SCH (21:26)
[2021-10-19 04:32] LABS: #Basophils 0.1 thou/uL (0.0-0.2); #Eosinphils 0.4 thou/uL (0.0-0.7); #Lymphocytes 1.5 thou/uL (1.20-3.40); #Monocytes 0.9 thou/uL (0.11-0.59); %Eosinophils 3.7 % (0.0-10.0); %Lymphocytes 15.3 % (21.0-51.0); %Monocytes 9.2 % (0.0-10.0); %Neutrophils 70.9 % (42.0-75.0); Hemoglobin 5.5 g/dL (14.0-18.0); Mean Corpuscular Hemoglobin 33.4 pg (27.0-31.0); Mean Corpuscular Volume 92.9 fL (78.0-98.0); Mean Platelet Volume 5.8 fL (7.4-10.4); Platelet Count 266 thou/uL (130-400); Red Blood Cell (RBC) Count 1.66 mill/uL (4.70-6.10); White Blood Cell (WBC) Count 9.9 thou/uL (4.8-10.8)
[2021-10-19 04:51] LABS: ALT (SGPT) Less than 7 U/L (8-55); AST (SGOT) 14 U/L (5-34); Albumin 1.7 g/dL (3.5-5.0); Alkaline Phosphatase 51 U/L (40-110); Anion Gap 11 mmol/L (10-20); BUN (Urea Nitrogen) 64 mg/dL (8.4-25.7); Bilirubin, Total Less than 0.2 mg/dL (0.2-1.2); Calc. Creatinine Clearance 7 mL/min (70-130); Calcium 6.8 mg/dL (7.8-10.44); Carbon Dioxide 24 mmol/L (22-29); Chloride 103 mmol/L (98-107); Globulin 1.7 g/dL (2.4-3.5); Glucose 182 mg/dL (70-105); Magnesium 1.8 mg/dL (1.6-2.6); Potassium 4.1 mmol/L (3.5-5.1); Protein, Total 3.4 g/dL (6.0-8.3); Sodium 134 mmol/L (136-145)
[2021-10-19 07:46] VITALS: BMI 28.0
[2021-10-19 08:06] LABS: Glucose 163 mg/dL (70-105)
[2021-10-19] MEDS ORDERED: Calcium Carbonate 600 MG + Vit D TAB PO SCH (09:00)
[2021-10-19 10:20] LABS: Hemoglobin 6.7 g/dL (14.0-18.0)
[2021-10-19] MEDS: Fidaxomicin 200 MG TAB PO SCH ×2 (10:22→21:09)
[2021-10-19] MEDS: Sevelamer Carbonate 800 MG TAB PO SCH ×3 (10:23→17:54)
[2021-10-19] MEDS: EPOETIN ALFA-EPBX (ESRD) 4,000 UNIT/ML VIAL SC SCH (10:24)
[2021-10-19] MEDS: Calcitriol 0.25 MCG CAP PO SCH (10:24)
[2021-10-19] MEDS: Lantus 1000 UNITS/10 ML VIAL SC SCH (10:24)
[2021-10-19] MEDS: Aspirin 81 mg Enteric Coated Tablet PO SCH (10:24)
[2021-10-19] MEDS: Cholestyramine/Aspartame 4 gm Packet PO SCH ×2 (10:24→17:54)
[2021-10-19] MEDS: Potassium Chloride 20 MEQ TAB PO SCH (10:24)
[2021-10-19 11:42] LABS: Glucose 156 mg/dL (70-105)
[2021-10-19 17:32] LABS: Hemoglobin 7.8 g/dL (14.0-18.0)
[2021-10-19 17:48] LABS: Glucose 117 mg/dL (70-105)
[2021-10-19 20:30] LABS: Glucose 112 mg/dL (70-105)
[2021-10-19] MEDS: Melatonin 3 MG TAB PO SCH (21:10)
[2021-10-19] MEDS ORDERED: hydrOXYzine 25 MG TAB PO PRN (21:18)
[2021-10-20 04:33] LABS: #Basophils 0.1 thou/uL (0.0-0.2); #Eosinphils 0.3 thou/uL (0.0-0.7); #Lymphocytes 1.3 thou/uL (1.20-3.40); #Monocytes 0.7 thou/uL (0.11-0.59); #Neutrophils 5.3 thou/uL (1.40-6.50); %Basophils 0.8 % (0.0-1.0); %Eosinophils 4.3 % (0.0-10.0); %Lymphocytes 17.1 % (21.0-51.0); %Monocytes 8.9 % (0.0-10.0); %Neutrophils 68.9 % (42.0-75.0); Hemoglobin 7.4 g/dL (14.0-18.0); Mean Corpuscular Hemoglobin 31.3 pg (27.0-31.0); Mean Corpuscular Volume 89.3 fL (78.0-98.0); Platelet Count 260 thou/uL (130-400); RBC Distribution Width 14.3 % (11.5-14.5); Red Blood Cell (RBC) Count 2.36 mill/uL (4.70-6.10); White Blood Cell (WBC) Count 7.7 thou/uL (4.8-10.8)
[2021-10-20 05:58] LABS: ALT (SGPT) 8 U/L (8-55); AST (SGOT) 15 U/L (5-34); Albumin 1.7 g/dL (3.5-5.0); Alkaline Phosphatase 61 U/L (40-110); Anion Gap 9 mmol/L (10-20); BUN (Urea Nitrogen) 75 mg/dL (8.4-25.7); Bilirubin, Total 0.2 mg/dL (0.2-1.2); Calc. Creatinine Clearance 7 mL/min (70-130); Calcium 7.3 mg/dL (7.8-10.44); Carbon Dioxide 26 mmol/L (22-29); Chloride 102 mmol/L (98-107); Globulin 1.8 g/dL (2.4-3.5); Glucose 156 mg/dL (70-105); Potassium 4.4 mmol/L (3.5-5.1); Protein, Total 3.5 g/dL (6.0-8.3); Sodium 133 mmol/L (136-145)
[2021-10-20] MEDS: Calcitriol 0.25 MCG CAP PO SCH (08:14)
[2021-10-20] MEDS: Cholestyramine/Aspartame 4 gm Packet PO SCH ×2 (08:14→17:06)
[2021-10-20] MEDS: Sevelamer Carbonate 800 MG TAB PO SCH ×3 (08:14→17:06)
[2021-10-20] MEDS: Fidaxomicin 200 MG TAB PO SCH ×2 (08:14→21:34)
[2021-10-20] MEDS: Aspirin 81 mg Enteric Coated Tablet PO SCH (08:14)
[2021-10-20] MEDS: Potassium Chloride 20 MEQ TAB PO SCH (08:15)
[2021-10-20] MEDS: Calcium Carbonate 600 MG + Vit D TAB PO SCH (08:15)
[2021-10-20] MEDS: Lantus 1000 UNITS/10 ML VIAL SC SCH (08:16)
[2021-10-20 08:55] LABS: Glucose 164 mg/dL (70-105)
[2021-10-20] MEDS: Acetaminophen 500 MG TAB PO SCH ×2 (09:39→21:32)
[2021-10-20 11:23] LABS: SARS-CoV-2 PCR by NAA Not Detected (NotDetected)
[2021-10-20] MEDS ORDERED: PROPOFOL 200 MG/20 ML VIAL ONE (12:10)
[2021-10-20] MEDS ORDERED: Lidocaine 1% PF 5 ML VIAL ONE (12:10)
[2021-10-20 14:41] LABS: Glucose 126 mg/dL (70-105)
[2021-10-20 17:45] LABS: Glucose 170 mg/dL (70-105)
[2021-10-20 21:23] LABS: Glucose 190 mg/dL (70-105)
[2021-10-20] MEDS: Pantoprazole 40 MG VIAL IVP SCH (21:33)
[2021-10-20] MEDS: Melatonin 3 MG TAB PO SCH (21:33)
[2021-10-21 04:39] LABS: #Eosinphils 0.3 thou/uL (0.0-0.7); #Lymphocytes 1.2 thou/uL (1.20-3.40); #Monocytes 0.6 thou/uL (0.11-0.59); #Neutrophils 4.6 thou/uL (1.40-6.50); %Basophils 0.6 % (0.0-1.0); %Eosinophils 4.9 % (0.0-10.0); %Lymphocytes 17.3 % (21.0-51.0); %Monocytes 9.1 % (0.0-10.0); Hemoglobin 6.5 g/dL (14.0-18.0); Mean Corpuscular HGB CONC 35.1 g/dL (32.0-36.0); Mean Corpuscular Hemoglobin 31.8 pg (27.0-31.0); Mean Corpuscular Volume 90.6 fL (78.0-98.0); Mean Platelet Volume 5.9 fL (7.4-10.4); Platelet Count 256 thou/uL (130-400); RBC Distribution Width 14.4 % (11.5-14.5); Red Blood Cell (RBC) Count 2.03 mill/uL (4.70-6.10); White Blood Cell (WBC) Count 6.8 thou/uL (4.8-10.8)
[2021-10-21 05:00] LABS: ALT (SGPT) Less than 7 U/L (8-55); AST (SGOT) 12 U/L (5-34); Albumin 1.7 g/dL (3.5-5.0); Alkaline Phosphatase 67 U/L (40-110); Anion Gap 13 mmol/L (10-20); BUN (Urea Nitrogen) 70 mg/dL (8.4-25.7); Bilirubin, Total 0.3 mg/dL (0.2-1.2); Calc. Creatinine Clearance 7 mL/min (70-130); Calcium 7.4 mg/dL (7.8-10.44); Carbon Dioxide 23 mmol/L (22-29); Chloride 103 mmol/L (98-107); Globulin 1.9 g/dL (2.4-3.5); Glucose 171 mg/dL (70-105); Potassium 4.2 mmol/L (3.5-5.1); Protein, Total 3.6 g/dL (6.0-8.3); Sodium 135 mmol/L (136-145)
[2021-10-21 07:49] LABS: Glucose 122 mg/dL (70-105)
[2021-10-21] MEDS: Cholestyramine/Aspartame 4 gm Packet PO SCH ×2 (08:30→16:34)
[2021-10-21] MEDS: Pantoprazole 40 MG VIAL IVP SCH ×2 (08:30→20:32)
[2021-10-21] MEDS: Sevelamer Carbonate 800 MG TAB PO SCH ×3 (08:32→16:34)
[2021-10-21] MEDS: Fidaxomicin 200 MG TAB PO SCH ×2 (08:32→20:31)
[2021-10-21] MEDS: Calcium Carbonate 600 MG + Vit D TAB PO SCH (08:33)
[2021-10-21] MEDS: Calcitriol 0.25 MCG CAP PO SCH (08:33)
[2021-10-21] MEDS: Potassium Chloride 20 MEQ TAB PO SCH (08:33)
[2021-10-21] MEDS: Aspirin 81 mg Enteric Coated Tablet PO SCH (08:34)
[2021-10-21] MEDS: Lantus 1000 UNITS/10 ML VIAL SC SCH (08:34)
[2021-10-21] MEDS: Acetaminophen 500 MG TAB PO SCH ×2 (08:35→20:31)
[2021-10-21 11:47] LABS: Glucose 168 mg/dL (70-105)
[2021-10-21 17:19] LABS: Hemoglobin 7.6 g/dL (14.0-18.0)
[2021-10-21 17:32] LABS: Glucose 114 mg/dL (70-105)
[2021-10-21] MEDS: Melatonin 3 MG TAB PO SCH (20:32)
[2021-10-21 22:12] LABS: Glucose 167 mg/dL (70-105)
[2021-10-22 04:51] LABS: #Basophils 0.1 thou/uL (0.0-0.2); #Eosinphils 0.4 thou/uL (0.0-0.7); #Monocytes 0.7 thou/uL (0.11-0.59); #Neutrophils 4.4 thou/uL (1.40-6.50); %Basophils 0.8 % (0.0-1.0); %Lymphocytes 15.7 % (21.0-51.0); %Neutrophils 66.5 % (42.0-75.0); Hemoglobin 7.9 g/dL (14.0-18.0); Mean Corpuscular HGB CONC 35.5 g/dL (32.0-36.0); Mean Corpuscular Hemoglobin 32.5 pg (27.0-31.0); Mean Corpuscular Volume 91.5 fL (78.0-98.0); Mean Platelet Volume 5.9 fL (7.4-10.4); Platelet Count 324 thou/uL (130-400); RBC Distribution Width 14.1 % (11.5-14.5); Red Blood Cell (RBC) Count 2.43 mill/uL (4.70-6.10); White Blood Cell (WBC) Count 6.6 thou/uL (4.8-10.8)
[2021-10-22 05:02] LABS: ALT (SGPT) Less than 7 U/L (8-55); AST (SGOT) 12 U/L (5-34); Albumin 1.9 g/dL (3.5-5.0); Alkaline Phosphatase 73 U/L (40-110); Anion Gap 12 mmol/L (10-20); BUN (Urea Nitrogen) 65 mg/dL (8.4-25.7); Bilirubin, Total 0.3 mg/dL (0.2-1.2); Calc. Creatinine Clearance 7 mL/min (70-130); Calcium 7.2 mg/dL (7.8-10.44); Carbon Dioxide 24 mmol/L (22-29); Chloride 103 mmol/L (98-107); Glucose 153 mg/dL (70-105); Potassium 4.2 mmol/L (3.5-5.1); Protein, Total 3.9 g/dL (6.0-8.3); Sodium 135 mmol/L (136-145)
[2021-10-22] MEDS: Calcitriol 0.25 MCG CAP PO SCH (09:03)
[2021-10-22] MEDS: Potassium Chloride 20 MEQ TAB PO SCH (09:04)
[2021-10-22] MEDS: Sevelamer Carbonate 800 MG TAB PO SCH ×2 (09:04→13:03)
[2021-10-22] MEDS: Calcium Carbonate 600 MG + Vit D TAB PO SCH (09:05)
[2021-10-22] MEDS: Cholestyramine/Aspartame 4 gm Packet PO SCH (09:06)
[2021-10-22] MEDS: Acetaminophen 500 MG TAB PO SCH (09:06)
[2021-10-22] MEDS: Fidaxomicin 200 MG TAB PO SCH (09:08)
[2021-10-22] MEDS: Pantoprazole 40 MG VIAL IVP SCH (09:08)
[2021-10-22] MEDS: Lantus 1000 UNITS/10 ML VIAL SC SCH (09:09)
[2021-10-22] MEDS: EPOETIN ALFA-EPBX (ESRD) 4,000 UNIT/ML VIAL SC SCH (09:20)
[2021-10-22 12:02] LABS: Glucose 131 mg/dL (70-105)
[2021-10-22 12:29] VITALS: BP 170/77; TEMP 98.1
[2021-10-22 14:14] LABS: SARS-CoV-2 PCR by NAA Not Detected (NotDetected)
== END 2021-10-22 13:36 | disposition home or self-care (01) | DRG 371 ==
LOC: ERS 17:17 → 2NO 20:29
PROVIDERS: ADMIT Family Medicine; ATTEND Family Medicine
PROC: 5A1D70Z Performance of Urinary Filtration, Intermittent, Less than 6 Hours Per Day (ICD-10-PCS; 2021-09-29)
PROC: 0HBRXZZ Excision of Toe Nail, External Approach (ICD-10-PCS; 2021-10-04)
PROC: 30233N1 Transfusion of Nonautologous Red Blood Cells into Peripheral Vein, Percutaneous Approach (ICD-10-PCS; principal; 2021-10-10)
PROC: 0W3P8ZZ Control Bleeding in Gastrointestinal Tract, Via Natural or Artificial Opening Endoscopic (ICD-10-PCS; 2021-10-10)
DX: A04.72 Enterocolitis due to Clostridium difficile, not specified as recurrent (principal); N18.6 End stage renal disease; K26.4 Chronic or unspecified duodenal ulcer with hemorrhage; E87.1 Hypo-osmolality and hyponatremia; I13.2 Hypertensive heart and chronic kidney disease with heart failure and with stage 5 chronic kidney disease, or end stage renal disease; R78.81 Bacteremia; C79.02 Secondary malignant neoplasm of left kidney and renal pelvis; Z16.12 Extended spectrum beta lactamase (ESBL) resistance; Z20.822 Contact with and (suspected) exposure to COVID-19; E78.5 Hyperlipidemia, unspecified; E86.0 Dehydration; E11.42 Type 2 diabetes mellitus with diabetic polyneuropathy; E78.00 Pure hypercholesterolemia, unspecified; I95.1 Orthostatic hypotension; I50.9 Heart failure, unspecified; L60.0 Ingrowing nail; E11.22 Type 2 diabetes mellitus with diabetic chronic kidney disease; D63.1 Anemia in chronic kidney disease; K52.832 Lymphocytic colitis; E83.42 Hypomagnesemia; B96.1 Klebsiella pneumoniae [K. pneumoniae] as the cause of diseases classified elsewhere; F32.A Depression, unspecified; E83.51 Hypocalcemia; E87.6 Hypokalemia; Z85.528 Personal history of other malignant neoplasm of kidney; Z99.2 Dependence on renal dialysis; Z79.82 Long term (current) use of aspirin; Z79.899 Other long term (current) drug therapy; Z86.73 Personal history of transient ischemic attack (TIA), and cerebral infarction without residual deficits; Z90.49 Acquired absence of other specified parts of digestive tract; Z91.14 Patient's other noncompliance with medication regimen
CPT/HCPCS: 0240U; 36415; 36416; 36430; 71045; 74160; 74177; 80048; 80053; 82533; 82607; 82728; 82746; 83036; 83540; 83550; 83605; 83630; 83735; 84100; 84484; 85025; 85610; 85730; 86140; 86850; 86900; 86901; 87040; 87070; 87077; 87149; 87186; 87205; 87324; 87328; 87329; 87449; 90945; 93005; 93010; 93306; C9113; G0257; J1644; J1815; J2185; J2704; J2765; J3475; J3480; J3490; J7120; P9016; Q0162; Q5105; Q9967; U0002; U0003; U0005

== ENCOUNTER 2021-12-12 21:54 | Inpatient (IN) | payer OTHER, SELFPAY ==
[2021-12-12 22:26] LABS: #Basophils 0.1 thou/uL (0.0-0.2); #Eosinphils 0.3 thou/uL (0.0-0.7); #Lymphocytes 1.7 thou/uL (1.20-3.40); #Neutrophils 6.6 thou/uL (1.40-6.50); %Basophils 0.9 % (0.0-1.0); %Eosinophils 3.1 % (0.0-10.0); %Lymphocytes 17.9 % (21.0-51.0); %Monocytes 9.9 % (0.0-10.0); %Neutrophils 68.3 % (42.0-75.0); Mean Corpuscular HGB CONC 32.1 g/dL (32.0-36.0); Mean Corpuscular Hemoglobin 29.8 pg (27.0-31.0); Mean Corpuscular Volume 92.8 fL (78.0-98.0); Platelet Count 204 thou/uL (130-400); RBC Distribution Width 15.8 % (11.5-14.5); Red Blood Cell (RBC) Count 4.37 mill/uL (4.70-6.10); White Blood Cell (WBC) Count 9.7 thou/uL (4.8-10.8)
[2021-12-12 22:38] LABS: PTT 29.6 sec (22.9-36.1); Prothrombin Time 12.9 sec (12.0-14.7)
[2021-12-12] MEDS ORDERED: Aspirin 325 MG TAB ONE (22:40)
[2021-12-12 22:51] LABS: ALT (SGPT) 17 U/L (8-55); AST (SGOT) 17 U/L (5-34); Albumin 3.2 g/dL (3.5-5.0); Alkaline Phosphatase 100 U/L (40-110); Anion Gap 20 mmol/L (10-20); BUN (Urea Nitrogen) 38 mg/dL (8.4-25.7); Bilirubin, Total 0.2 mg/dL (0.2-1.2); CK (CPK) 139 U/L (30-200); Calc. Creatinine Clearance 0 mL/min (70-130); Calcium 8.7 mg/dL (7.8-10.44); Carbon Dioxide 25 mmol/L (22-29); Chloride 98 mmol/L (98-107); Globulin 3.5 g/dL (2.4-3.5); Glucose 185 mg/dL (70-105); Lipase 106 U/L (8-78); Potassium 5.6 mmol/L (3.5-5.1); Protein, Total 6.7 g/dL (6.0-8.3); Sodium 137 mmol/L (136-145)
[2021-12-12 23:12] LABS: CKMB 5.4 ng/mL (0-6.6)
[2021-12-13] MEDS ORDERED: Labetalol HCl 100 MG/20 ML VIAL SLOW IVP PRN (00:27)
[2021-12-13] MEDS ORDERED: hydrALAZINE 20 MG/ML VIAL SLOW IVP PRN ×2 (00:27→14:12)
[2021-12-13] MEDS ORDERED: Acetaminophen 325 MG TAB PO PRN (00:27)
[2021-12-13] MEDS ORDERED: Dextrose 50% Abboject 50 ML SYRINGE SLOW IVP PRN (00:27)
[2021-12-13] MEDS ORDERED: Dextrose 5% in Water 1,000 ML IV PRN (00:27)
[2021-12-13 07:33] LABS: #Basophils 0.1 thou/uL (0.0-0.2); #Eosinphils 0.2 thou/uL (0.0-0.7); #Lymphocytes 1.2 thou/uL (1.20-3.40); #Neutrophils 8.6 thou/uL (1.40-6.50); %Basophils 0.5 % (0.0-1.0); %Lymphocytes 10.5 % (21.0-51.0); %Monocytes 9.1 % (0.0-10.0); Hemoglobin 12.2 g/dL (14.0-18.0); Mean Corpuscular HGB CONC 32.9 g/dL (32.0-36.0); Mean Corpuscular Hemoglobin 30.3 pg (27.0-31.0); Mean Corpuscular Volume 92.2 fL (78.0-98.0); Mean Platelet Volume 7.4 fL (7.4-10.4); Platelet Count 178 thou/uL (130-400); RBC Distribution Width 15.6 % (11.5-14.5); Red Blood Cell (RBC) Count 4.01 mill/uL (4.70-6.10)
[2021-12-13 07:58] LABS: ALT (SGPT) 10 U/L (8-55); AST (SGOT) 13 U/L (5-34); Albumin 2.6 g/dL (3.5-5.0); Alkaline Phosphatase 81 U/L (40-110); Anion Gap 17 mmol/L (10-20); BUN (Urea Nitrogen) 41 mg/dL (8.4-25.7); Bilirubin, Total 0.2 mg/dL (0.2-1.2); Calc. Creatinine Clearance 0 mL/min (70-130); Calcium 8.2 mg/dL (7.8-10.44); Carbon Dioxide 25 mmol/L (22-29); Cardiac Risk 4.8 (Less than 4.5); Cholesterol 129 mg/dl (< 200 Desired); Globulin 2.9 g/dL (2.4-3.5); Glucose 132 mg/dL (70-105); HDL Cholesterol 27 mg/dL (>60 Neg Risk); LDL Cholesterol, Calculated 68 mg/dL; Magnesium 1.9 mg/dL (1.6-2.6); Potassium 5.6 mmol/L (3.5-5.1); Protein, Total 5.5 g/dL (6.0-8.3); Triglycerides 168 mg/dL (Less than 150)
[2021-12-13 08:04] LABS: Chloride 101 mmol/L (98-107); Sodium 137 mmol/L (136-145)
[2021-12-13] MEDS ORDERED: Acetaminophen 500 MG TAB PO PRN (10:44)
[2021-12-13] MEDS ORDERED: Metoclopramide HCl 10 MG TAB PO PRN (10:44)
[2021-12-13] MEDS ORDERED: Heparin 10,000 UNITS/ 10 ML VIAL ONE (11:12)
[2021-12-13] MEDS ORDERED: EPOETIN ALFA-EPBX (ESRD) 4,000 UNIT/ML VIAL SC SCH (12:00)
[2021-12-13 14:44] LABS: SARS-CoV-2 PCR by NAA Not Detected (NotDetected)
[2021-12-13] MEDS: Heparin 5,000 UNITS/ML VIAL SC SCH ×2 (16:06→23:43)
[2021-12-13] MEDS: Sevelamer Carbonate 800 MG TAB PO SCH ×2 (16:07→18:27)
[2021-12-13 16:13] VITALS: BMI 28.0
[2021-12-13 16:30] LABS: HBSAg Index 0.27 S/CO (0-0.99); Hep B Surf Ag Non-Reactive S/CO (NonReactive)
[2021-12-13] MEDS ORDERED: FLU VACC QS2021-22(6MOS UP)/PF 60 MCG/0.5 ML SYRINGE IM ONE (17:15)
[2021-12-13] MEDS: Cholestyramine/Aspartame 4 gm Packet PO SCH (18:27)
[2021-12-13] MEDS ORDERED: EPOETIN ALFA-EPBX (ESRD) 10,000 UNIT/ML VIAL SC SCH (19:00)
[2021-12-13] MEDS ORDERED: Amlodipine 10 MG TAB PO SCH (21:00)
[2021-12-13] MEDS: Aspirin 300 MG Suppository PR SCH (21:02)
[2021-12-13] MEDS: Carvedilol 25 MG TAB PO SCH (21:03)
[2021-12-13] MEDS: Atorvastatin Calcium 40 MG TAB PO SCH (21:03)
[2021-12-14] MEDS ORDERED: hydrALAZINE 20 MG/ML VIAL SLOW IVP PRN (08:05)
[2021-12-14] MEDS: Calcium Carbonate 600 MG + Vit D TAB PO SCH (08:58)
[2021-12-14] MEDS: Carvedilol 25 MG TAB PO SCH ×2 (08:58→20:01)
[2021-12-14] MEDS: Calcitriol 0.25 MCG CAP PO SCH (08:58)
[2021-12-14] MEDS: Cholestyramine/Aspartame 4 gm Packet PO SCH ×2 (08:58→18:03)
[2021-12-14] MEDS: Gabapentin 100 MG CAP PO SCH (08:59)
[2021-12-14] MEDS: Amlodipine 10 MG TAB PO SCH (08:59)
[2021-12-14] MEDS: Sevelamer Carbonate 800 MG TAB PO SCH ×3 (08:59→18:03)
[2021-12-14] MEDS ORDERED: Furosemide 20 MG TAB PO SCH (09:00)
[2021-12-14] MEDS ORDERED: Amlodipine 10 MG TAB PO SCH (09:00)
[2021-12-14] MEDS ORDERED: Lantus 1000 UNITS/10 ML VIAL SC SCH (09:00)
[2021-12-14] MEDS: Heparin 5,000 UNITS/ML VIAL SC SCH ×2 (09:00→20:01)
[2021-12-14] MEDS ORDERED: Aspirin 81 mg Enteric Coated Tablet PO SCH (09:00)
[2021-12-14 09:44] LABS: Hemoglobin A1c 5.5 % (4.0-6.0)
[2021-12-14 09:55] LABS: Anion Gap 18 mmol/L (10-20); BUN (Urea Nitrogen) 46 mg/dL (8.4-25.7); Calc. Creatinine Clearance 6 mL/min (70-130); Calcium 8.2 mg/dL (7.8-10.44); Carbon Dioxide 25 mmol/L (22-29); Chloride 101 mmol/L (98-107); Glucose 81 mg/dL (70-105); Potassium 5.4 mmol/L (3.5-5.1); Sodium 139 mmol/L (136-145)
[2021-12-14] MEDS ORDERED: VICTOZA 18MG/3ML SC SCH (10:30)
[2021-12-14] MEDS: Aspirin 300 MG Suppository PR SCH (20:00)
[2021-12-14] MEDS: Atorvastatin Calcium 40 MG TAB PO SCH (20:00)
[2021-12-14] MEDS: Pantoprazole 40 MG VIAL IVP SCH (20:01)
[2021-12-15 05:43] LABS: Anion Gap 19 mmol/L (10-20); BUN (Urea Nitrogen) 44 mg/dL (8.4-25.7); Calc. Creatinine Clearance 6 mL/min (70-130); Calcium 8.3 mg/dL (7.8-10.44); Carbon Dioxide 24 mmol/L (22-29); Chloride 102 mmol/L (98-107); Glucose 136 mg/dL (70-105); Potassium 4.9 mmol/L (3.5-5.1); Sodium 140 mmol/L (136-145)
[2021-12-15] MEDS ORDERED: PROPOFOL 200 MG/20 ML VIAL ONE (13:35)
[2021-12-15] MEDS ORDERED: Lidocaine 1% PF 5 ML VIAL ONE (13:35)
[2021-12-15] MEDS ORDERED: Promethazine HCl 25 MG/ML VIAL IM PRN (14:08)
[2021-12-15] MEDS ORDERED: Ondansetron HCl/PF 4 MG/2 ML Vial IVP PRN (14:08)
[2021-12-15] MEDS ORDERED: Promethazine HCl 25 MG/ML VIAL IVPB PRN (14:08)
[2021-12-15] MEDS: Cholestyramine/Aspartame 4 gm Packet PO SCH ×2 (16:07→17:13)
[2021-12-15] MEDS: Gabapentin 100 MG CAP PO SCH (16:07)
[2021-12-15] MEDS: Carvedilol 25 MG TAB PO SCH ×2 (16:08→21:12)
[2021-12-15] MEDS: Calcium Carbonate 600 MG + Vit D TAB PO SCH (16:08)
[2021-12-15] MEDS: Amlodipine 10 MG TAB PO SCH (16:08)
[2021-12-15] MEDS: Sevelamer Carbonate 800 MG TAB PO SCH ×3 (16:09→16:10)
[2021-12-15] MEDS: Calcitriol 0.25 MCG CAP PO SCH (16:10)
[2021-12-15] MEDS: Pantoprazole 40 MG VIAL IVP SCH ×2 (16:10→21:13)
[2021-12-15] MEDS: Heparin 5,000 UNITS/ML VIAL SC SCH ×2 (16:11→21:12)
[2021-12-15] MEDS: VICTOZA 18MG/3ML SC SCH (16:15)
[2021-12-15] MEDS ORDERED: Aspirin Chewable 81 MG TAB PO SCH (16:15)
[2021-12-15] MEDS: Atorvastatin Calcium 40 MG TAB PO SCH (21:12)
[2021-12-16] MEDS: HumaLOG 300 UNITS/3 ML VIAL SC PRN (06:47)
[2021-12-16] MEDS: Amlodipine 10 MG TAB PO SCH (08:20)
[2021-12-16] MEDS: Aspirin Chewable 81 MG TAB PO SCH (08:20)
[2021-12-16] MEDS: Cholestyramine/Aspartame 4 gm Packet PO SCH ×2 (08:20→17:28)
[2021-12-16] MEDS: Carvedilol 25 MG TAB PO SCH ×2 (08:21→20:50)
[2021-12-16] MEDS: Calcium Carbonate 600 MG + Vit D TAB PO SCH (08:21)
[2021-12-16] MEDS: Gabapentin 100 MG CAP PO SCH (08:21)
[2021-12-16] MEDS: Sevelamer Carbonate 800 MG TAB PO SCH ×3 (08:21→17:28)
[2021-12-16] MEDS: Pantoprazole 40 MG VIAL IVP SCH ×2 (08:21→20:51)
[2021-12-16] MEDS: Clopidogrel Bisulfate 75 MG TAB PO SCH (08:21)
[2021-12-16] MEDS: VICTOZA 18MG/3ML SC SCH (08:22)
[2021-12-16] MEDS: Calcitriol 0.25 MCG CAP PO SCH (08:23)
[2021-12-16] MEDS: Heparin 5,000 UNITS/ML VIAL SC SCH ×2 (08:27→20:51)
[2021-12-16] MEDS ORDERED: Non-Formulary Item 1 EACH (Liraglutide [Victoza 3-Pak] 0.6 MG/0.1 ML Pen.Injctr) SC SCH (09:00)
[2021-12-16] MEDS: Atorvastatin Calcium 40 MG TAB PO SCH (20:50)
[2021-12-17] MEDS: HumaLOG 300 UNITS/3 ML VIAL SC PRN (06:31)
[2021-12-17] MEDS: Calcium Carbonate 600 MG + Vit D TAB PO SCH (08:42)
[2021-12-17] MEDS: Sevelamer Carbonate 800 MG TAB PO SCH ×3 (08:42→16:57)
[2021-12-17] MEDS: Cholestyramine/Aspartame 4 gm Packet PO SCH ×2 (08:42→16:57)
[2021-12-17] MEDS: Pantoprazole 40 MG VIAL IVP SCH ×2 (08:43→20:42)
[2021-12-17] MEDS: Clopidogrel Bisulfate 75 MG TAB PO SCH (08:43)
[2021-12-17] MEDS: Heparin 5,000 UNITS/ML VIAL SC SCH ×2 (08:43→20:41)
[2021-12-17] MEDS: Aspirin Chewable 81 MG TAB PO SCH (08:44)
[2021-12-17] MEDS: Calcitriol 0.25 MCG CAP PO SCH (08:44)
[2021-12-17] MEDS: Carvedilol 25 MG TAB PO SCH ×2 (08:44→20:41)
[2021-12-17] MEDS: Amlodipine 10 MG TAB PO SCH (08:44)
[2021-12-17] MEDS: Gabapentin 100 MG CAP PO SCH (08:44)
[2021-12-17] MEDS: VICTOZA 18MG/3ML SC SCH (08:59)
[2021-12-17 09:56] LABS: Anion Gap 14 mmol/L (10-20); BUN (Urea Nitrogen) 40 mg/dL (8.4-25.7); Calc. Creatinine Clearance 6 mL/min (70-130); Calcium 8.2 mg/dL (7.8-10.44); Carbon Dioxide 30 mmol/L (22-29); Chloride 98 mmol/L (98-107); Glucose 92 mg/dL (70-105); Potassium 4.6 mmol/L (3.5-5.1); Sodium 137 mmol/L (136-145)
[2021-12-17 12:51] LABS: Hemoglobin 11.8 g/dL (14.0-18.0); Platelet Count 223 thou/uL (130-400)
[2021-12-17] MEDS: Atorvastatin Calcium 40 MG TAB PO SCH (20:41)
[2021-12-18 05:44] LABS: Hemoglobin 11.3 g/dL (14.0-18.0); Platelet Count 237 thou/uL (130-400)
[2021-12-18 06:12] LABS: Anion Gap 18 mmol/L (10-20); BUN (Urea Nitrogen) 44 mg/dL (8.4-25.7); Calc. Creatinine Clearance 6 mL/min (70-130); Carbon Dioxide 25 mmol/L (22-29); Chloride 95 mmol/L (98-107); Glucose 143 mg/dL (70-105); Potassium 4.6 mmol/L (3.5-5.1); Sodium 133 mmol/L (136-145)
[2021-12-18] MEDS: VICTOZA 18MG/3ML SC SCH (10:16)
[2021-12-18] MEDS: Gabapentin 100 MG CAP PO SCH (10:19)
[2021-12-18] MEDS: Cholestyramine/Aspartame 4 gm Packet PO SCH ×2 (10:19→18:34)
[2021-12-18] MEDS: Aspirin Chewable 81 MG TAB PO SCH (10:20)
[2021-12-18] MEDS: Heparin 5,000 UNITS/ML VIAL SC SCH ×2 (10:20→20:08)
[2021-12-18] MEDS: Calcium Carbonate 600 MG + Vit D TAB PO SCH (10:20)
[2021-12-18] MEDS: Carvedilol 25 MG TAB PO SCH ×2 (10:20→20:08)
[2021-12-18] MEDS: Amlodipine 10 MG TAB PO SCH (10:20)
[2021-12-18] MEDS: Calcitriol 0.25 MCG CAP PO SCH (10:20)
[2021-12-18] MEDS: Pantoprazole 40 MG VIAL IVP SCH ×2 (10:21→20:08)
[2021-12-18] MEDS: Sevelamer Carbonate 800 MG TAB PO SCH ×3 (10:21→18:33)
[2021-12-18] MEDS: Clopidogrel Bisulfate 75 MG TAB PO SCH (10:21)
[2021-12-18] MEDS: Atorvastatin Calcium 40 MG TAB PO SCH (20:08)
[2021-12-18 23:38] LABS: H. pylori IgA ABS Less than 9.0 units (0.0-8.9); H. pylori IgG ABS 0.16 (0.00-0.79); H. pylori IgM ABS Less than 9.0 units (0.0-8.9)
[2021-12-19 05:43] LABS: Hemoglobin 11.2 g/dL (14.0-18.0); Platelet Count 251 thou/uL (130-400)
[2021-12-19] MEDS: HumaLOG 300 UNITS/3 ML VIAL SC PRN (06:00)
[2021-12-19 06:38] LABS: Anion Gap 14 mmol/L (10-20); BUN (Urea Nitrogen) 45 mg/dL (8.4-25.7); Calc. Creatinine Clearance 6 mL/min (70-130); Calcium 7.9 mg/dL (7.8-10.44); Carbon Dioxide 28 mmol/L (22-29); Chloride 94 mmol/L (98-107); Glucose 185 mg/dL (70-105); Potassium 4.3 mmol/L (3.5-5.1); Sodium 132 mmol/L (136-145)
[2021-12-19] MEDS: Clopidogrel Bisulfate 75 MG TAB PO SCH (09:29)
[2021-12-19] MEDS: Sevelamer Carbonate 800 MG TAB PO SCH ×3 (09:29→17:49)
[2021-12-19] MEDS: Gabapentin 100 MG CAP PO SCH (09:30)
[2021-12-19] MEDS: Carvedilol 25 MG TAB PO SCH ×2 (09:31→19:37)
[2021-12-19] MEDS: Aspirin Chewable 81 MG TAB PO SCH (09:31)
[2021-12-19] MEDS: Amlodipine 10 MG TAB PO SCH (09:31)
[2021-12-19] MEDS: Calcium Carbonate 600 MG + Vit D TAB PO SCH (09:31)
[2021-12-19] MEDS: Heparin 5,000 UNITS/ML VIAL SC SCH ×2 (09:32→19:37)
[2021-12-19] MEDS: VICTOZA 18MG/3ML SC SCH (09:34)
[2021-12-19] MEDS: Cholestyramine/Aspartame 4 gm Packet PO SCH ×2 (09:34→17:49)
[2021-12-19] MEDS: Calcitriol 0.25 MCG CAP PO SCH (09:42)
[2021-12-19 18:48] LABS: SARS-CoV-2 PCR by NAA Not Detected (NotDetected)
[2021-12-19] MEDS: Atorvastatin Calcium 40 MG TAB PO SCH (19:36)
[2021-12-20 05:14] LABS: Hemoglobin 11.3 g/dL (14.0-18.0); Platelet Count 250 thou/uL (130-400)
[2021-12-20] MEDS: HumaLOG 300 UNITS/3 ML VIAL SC PRN (06:13)
[2021-12-20 06:28] LABS: Anion Gap 19 mmol/L (10-20); BUN (Urea Nitrogen) 41 mg/dL (8.4-25.7); Calc. Creatinine Clearance 6 mL/min (70-130); Carbon Dioxide 22 mmol/L (22-29); Chloride 94 mmol/L (98-107); Glucose 170 mg/dL (70-105); Potassium 4.2 mmol/L (3.5-5.1); Sodium 131 mmol/L (136-145)
[2021-12-20] MEDS ORDERED: Lisinopril 2.5 MG TAB PO SCH (09:45)
[2021-12-20] MEDS: Calcitriol 0.25 MCG CAP PO SCH (09:59)
[2021-12-20] MEDS: Carvedilol 25 MG TAB PO SCH ×2 (09:59→20:10)
[2021-12-20] MEDS: Aspirin Chewable 81 MG TAB PO SCH (09:59)
[2021-12-20] MEDS: Amlodipine 10 MG TAB PO SCH (10:00)
[2021-12-20] MEDS: Clopidogrel Bisulfate 75 MG TAB PO SCH (10:01)
[2021-12-20] MEDS: Gabapentin 100 MG CAP PO SCH (10:01)
[2021-12-20] MEDS: Calcium Carbonate 600 MG + Vit D TAB PO SCH (10:01)
[2021-12-20] MEDS: Sevelamer Carbonate 800 MG TAB PO SCH ×2 (10:02→14:49)
[2021-12-20] MEDS: Heparin 5,000 UNITS/ML VIAL SC SCH ×2 (10:03→20:10)
[2021-12-20] MEDS: VICTOZA 18MG/3ML SC SCH (10:04)
[2021-12-20] MEDS ORDERED: EPOETIN ALFA-EPBX (ESRD) 4,000 UNIT/ML VIAL SC SCH (12:00)
[2021-12-20] MEDS: Cholestyramine/Aspartame 4 gm Packet PO SCH ×2 (12:30→18:47)
[2021-12-20] MEDS ORDERED: Sevelamer 2.4 GM PACKET PO SCH (14:45)
[2021-12-20] MEDS: Sevelamer 2.4 GM PACKET PO SCH (20:10)
[2021-12-20] MEDS: Atorvastatin Calcium 40 MG TAB PO SCH (20:10)
[2021-12-21 05:21] LABS: Hemoglobin 11.3 g/dL (14.0-18.0); Platelet Count 276 thou/uL (130-400)
[2021-12-21 05:42] LABS: Anion Gap 13 mmol/L (10-20); BUN (Urea Nitrogen) 44 mg/dL (8.4-25.7); Calc. Creatinine Clearance 6 mL/min (70-130); Carbon Dioxide 27 mmol/L (22-29); Chloride 97 mmol/L (98-107); Glucose 185 mg/dL (70-105); Potassium 4.2 mmol/L (3.5-5.1); Sodium 133 mmol/L (136-145)
[2021-12-21] MEDS: HumaLOG 300 UNITS/3 ML VIAL SC PRN ×2 (06:30→12:17)
[2021-12-21] MEDS: Aspirin Chewable 81 MG TAB PO SCH (08:42)
[2021-12-21] MEDS: Cholestyramine/Aspartame 4 gm Packet PO SCH ×2 (08:42→17:19)
[2021-12-21] MEDS: Carvedilol 25 MG TAB PO SCH (08:43)
[2021-12-21] MEDS: Amlodipine 10 MG TAB PO SCH (08:43)
[2021-12-21] MEDS: Calcitriol 0.25 MCG CAP PO SCH (08:43)
[2021-12-21] MEDS: Gabapentin 100 MG CAP PO SCH (08:44)
[2021-12-21] MEDS: Calcium Carbonate 600 MG + Vit D TAB PO SCH (08:45)
[2021-12-21] MEDS: Clopidogrel Bisulfate 75 MG TAB PO SCH (08:45)
[2021-12-21] MEDS: VICTOZA 18MG/3ML SC SCH (08:46)
[2021-12-21] MEDS: Sevelamer 2.4 GM PACKET PO SCH ×3 (08:46→17:19)
[2021-12-21] MEDS: Heparin 5,000 UNITS/ML VIAL SC SCH (08:46)
[2021-12-21] MEDS ORDERED: Lantus 1000 UNITS/10 ML VIAL SC SCH (09:00)
[2021-12-21] MEDS ORDERED: Lisinopril 2.5 MG TAB PO SCH (09:00)
[2021-12-21 15:48] VITALS: BP 128/68; TEMP 98.3
== END 2021-12-21 18:15 | DRG 64 ==
LOC: ERS 21:54 → ERHOLD 23:08 → NEURO 12-13 15:09
PROVIDERS: ADMIT Family Medicine; ATTEND Family Medicine
PROC: 3E1M39Z Irrigation of Peritoneal Cavity using Dialysate, Percutaneous Approach (ICD-10-PCS; 2021-12-13)
PROC: 0DH68UZ Insertion of Feeding Device into Stomach, Via Natural or Artificial Opening Endoscopic (ICD-10-PCS; principal; 2021-12-15)
DX: I63.512 Cerebral infarction due to unspecified occlusion or stenosis of left middle cerebral artery (principal); N18.6 End stage renal disease; G93.6 Cerebral edema; C64.9 Malignant neoplasm of unspecified kidney, except renal pelvis; I13.2 Hypertensive heart and chronic kidney disease with heart failure and with stage 5 chronic kidney disease, or end stage renal disease; I50.22 Chronic systolic (congestive) heart failure; Z23 Encounter for immunization; Z20.822 Contact with and (suspected) exposure to COVID-19; R29.708 NIHSS score 8; R47.01 Aphasia; E78.00 Pure hypercholesterolemia, unspecified; F32.A Depression, unspecified; R29.810 Facial weakness; E11.40 Type 2 diabetes mellitus with diabetic neuropathy, unspecified; E11.22 Type 2 diabetes mellitus with diabetic chronic kidney disease; R47.1 Dysarthria and anarthria; K25.9 Gastric ulcer, unspecified as acute or chronic, without hemorrhage or perforation; K26.9 Duodenal ulcer, unspecified as acute or chronic, without hemorrhage or perforation; E78.5 Hyperlipidemia, unspecified; R13.10 Dysphagia, unspecified; I08.1 Rheumatic disorders of both mitral and tricuspid valves; Z53.20 Procedure and treatment not carried out because of patient's decision for unspecified reasons; Z86.73 Personal history of transient ischemic attack (TIA), and cerebral infarction without residual deficits; Z78.1 Physical restraint status; Z90.5 Acquired absence of kidney; Z79.899 Other long term (current) drug therapy; Z79.82 Long term (current) use of aspirin; Z79.4 Long term (current) use of insulin; Z99.2 Dependence on renal dialysis; Z83.3 Family history of diabetes mellitus; Z82.49 Family history of ischemic heart disease and other diseases of the circulatory system; Z87.891 Personal history of nicotine dependence; Z87.11 Personal history of peptic ulcer disease
CPT/HCPCS: 36415; 36416; 70450; 70496; 70498; 70551; 71045; 74018; 74230; 80048; 80053; 80061; 82550; 82553; 83036; 83690; 83735; 83880; 84100; 84484; 85014; 85018; 85025; 85049; 85610; 85730; 87340; 90471; 90686; 90945; 93005; 93306; 95712; 95819; 95957; 96374; C9113; G0008; G0257; J1644; J1815; J2704; Q5105; U0003; U0005

== ENCOUNTER 2022-06-14 11:51 | Outpatient (CLI) | payer OTHER | END 2022-06-14 11:52 | disposition home or self-care (01) | LOC: LABBT 11:51 | PROVIDERS: ATTEND Internal Medicine Gastroenterology | DX: A04.72 Enterocolitis due to Clostridium difficile, not specified as recurrent (principal); K52.9 Noninfective gastroenteritis and colitis, unspecified; Z20.822 Contact with and (suspected) exposure to COVID-19 | CPT/HCPCS: 87811 ==

== ENCOUNTER 2022-06-19 09:48 | Day surgery (SDC) | payer OTHER ==
[2022-06-15 11:08] VITALS: BMI 25.4
[2022-06-19] MEDS ORDERED: Ketamine 50 MG/ML (10ML VIAL) ONE (12:10)
[2022-06-19] MEDS ORDERED: PROPOFOL 200 MG/20 ML VIAL ONE (12:20)
== END 2022-06-19 13:40 | disposition home or self-care (01) ==
LOC: SDC 09:48
PROVIDERS: ATTEND Internal Medicine Gastroenterology
PROC: 3E0H8GC Introduction of Other Therapeutic Substance into Lower GI, Via Natural or Artificial Opening Endoscopic (ICD-10-PCS; principal; 2022-06-19)
DX: A04.71 Enterocolitis due to Clostridium difficile, recurrent (principal); E11.22 Type 2 diabetes mellitus with diabetic chronic kidney disease; N18.9 Chronic kidney disease, unspecified; I50.9 Heart failure, unspecified; E78.5 Hyperlipidemia, unspecified; K21.9 Gastro-esophageal reflux disease without esophagitis; Z79.02 Long term (current) use of antithrombotics/antiplatelets; Z79.2 Long term (current) use of antibiotics; Z79.4 Long term (current) use of insulin; Z79.82 Long term (current) use of aspirin; Z79.899 Other long term (current) drug therapy; Z90.5 Acquired absence of kidney; Z99.2 Dependence on renal dialysis
CPT/HCPCS: 36416; J2704

== ENCOUNTER 2022-08-21 09:52 | Outpatient (CLI) | payer OTHER ==
[2022-08-21] MEDS ORDERED: Iopamidol-370 76% 500 ML 1 ML ONE (09:56)
== END 2022-08-21 09:53 | disposition home or self-care (01) ==
LOC: BICCT 09:52
PROVIDERS: ATTEND Internal Medicine Hematology & Oncology
DX: C64.2 Malignant neoplasm of left kidney, except renal pelvis (principal); R91.8 Other nonspecific abnormal finding of lung field; Z90.5 Acquired absence of kidney
CPT/HCPCS: 71260; 74177; Q9967

== ENCOUNTER 2022-08-25 11:47 | Inpatient (IN) | payer OTHER ==
[2022-08-25] MEDS ORDERED: Iopamidol-370 76% 500 ML 1 ML ONE (12:05)
[2022-08-25 12:18] LABS: INR-International Normal Ratio 1.2; PTT 36.5 sec (22.9-36.1); Prothrombin Time 15.2 sec (12.0-14.7)
[2022-08-25 12:20] LABS: ALT (SGPT) 17 U/L (8-55); AST (SGOT) 14 U/L (5-34); Alkaline Phosphatase 79 U/L (40-110); Anion Gap 15 mmol/L (10-20); BUN (Urea Nitrogen) 34 mg/dL (8.4-25.7); Bilirubin, Total 0.7 mg/dL (0.2-1.2); Calc. Creatinine Clearance 0 mL/min (70-130); Calcium 9.4 mg/dL (7.8-10.44); Carbon Dioxide 27 mmol/L (22-29); Chloride 99 mmol/L (98-107); Estimated GFR 8; Glucose 192 mg/dL (70-105); Potassium 4.9 mmol/L (3.5-5.1); Sodium 136 mmol/L (136-145)
[2022-08-25 12:22] LABS: Hemoglobin 9.9 g/dL (14.0-18.0); Mean Corpuscular HGB CONC 32.1 g/dL (32.0-36.0); Mean Corpuscular Hemoglobin 29.6 pg (27.0-31.0); Mean Platelet Volume 7.6 fL (7.4-10.4); Platelet Count 198 thou/uL (130-400); RBC Distribution Width 16.8 % (11.5-14.5); Red Blood Cell (RBC) Count 3.35 mill/uL (4.70-6.10); White Blood Cell (WBC) Count 8.8 thou/uL (4.8-10.8)
[2022-08-25 12:43] LABS: Band 1 % (5-11); Lymphocytes 13 % (21-51); MDiff Complete? YES; Monocytes 13 % (0-10); Neutrophil 62 % (42-75); Ovalocytes SLIGHT = 2-5 cells (100X) (0-1/hpf); Platelet Morphology Comment Appears Adequate; Polychromasia SLIGHT = 2-3 cells (100X) (0-2/hpf); Reactive Lymphocytes 10 % (0-10)
[2022-08-25] MEDS ORDERED: Aspirin Chewable 81 MG TAB ONE (13:18)
[2022-08-25] MEDS ORDERED: hydrALAZINE 20 MG/ML VIAL ONE (13:46)
[2022-08-25] MEDS ORDERED: Dextrose 5% in Water 1,000 ML IV PRN (14:55)
[2022-08-25] MEDS ORDERED: Dextrose 50% Abboject 50 ML SYRINGE SLOW IVP PRN (14:55)
[2022-08-25] MEDS ORDERED: Insulin Regular 300 UNITS/3 ML VIAL SC PRN ×2 (14:55)
[2022-08-25] MEDS ORDERED: Acetaminophen 325 MG TAB PO PRN (15:00)
[2022-08-25] MEDS ORDERED: Ondansetron ODT 4 MG TAB SL PRN (15:00)
[2022-08-25] MEDS ORDERED: Ondansetron PF 4 MG/2 ML Vial IVP PRN (15:00)
[2022-08-25] MEDS ORDERED: hydrALAZINE 20 MG/ML VIAL SLOW IVP PRN ×2 (15:08→16:26)
[2022-08-25] MEDS: Sevelamer Carbonate 800 MG TAB PO SCH (18:46)
[2022-08-25] MEDS: Carvedilol 6.25 MG TAB PO SCH (20:23)
[2022-08-25] MEDS: Atorvastatin Calcium 40 MG TAB PO SCH (20:23)
[2022-08-25] MEDS: Sacubitril 49 MG/Valsartan 51 MG TABLET PO SCH (20:23)
[2022-08-25] MEDS: Donepezil HCl 5 MG TAB PO SCH (20:24)
[2022-08-25] MEDS: Heparin 5,000 UNITS/ML VIAL SC SCH (20:25)
[2022-08-26 06:41] LABS: ALT (SGPT) 16 U/L (8-55); AST (SGOT) 12 U/L (5-34); Albumin 3.7 g/dL (3.5-5.0); Alkaline Phosphatase 77 U/L (40-110); Anion Gap 16 mmol/L (10-20); BUN (Urea Nitrogen) 44 mg/dL (8.4-25.7); Bilirubin, Total 0.6 mg/dL (0.2-1.2); Calc. Creatinine Clearance 0 mL/min (70-130); Calcium 9.2 mg/dL (7.8-10.44); Carbon Dioxide 25 mmol/L (22-29); Chloride 99 mmol/L (98-107); Estimated GFR 6; Globulin 2.7 g/dL (2.4-3.5); Glucose 95 mg/dL (70-105); Potassium 4.9 mmol/L (3.5-5.1); Protein, Total 6.4 g/dL (6.0-8.3); Sodium 135 mmol/L (136-145)
[2022-08-26 06:57] LABS: Band 2 % (5-11); Hemoglobin 9.7 g/dL (14.0-18.0); Lymphocytes 20 % (21-51); MDiff Complete? YES; Mean Corpuscular Hemoglobin 29.9 pg (27.0-31.0); Mean Corpuscular Volume 90.4 fL (78.0-98.0); Mean Platelet Volume 7.3 fL (7.4-10.4); Monocytes 17 % (0-10); Neutrophil 61 % (42-75); Nucleated RBC 1 % (0); Platelet Count 218 thou/uL (130-400); RBC Distribution Width 17.1 % (11.5-14.5); Red Blood Cell (RBC) Count 3.23 mill/uL (4.70-6.10); White Blood Cell (WBC) Count 6.7 thou/uL (4.8-10.8)
[2022-08-26] MEDS: Carvedilol 6.25 MG TAB PO SCH ×2 (08:48→20:43)
[2022-08-26] MEDS: Sevelamer Carbonate 800 MG TAB PO SCH ×3 (08:48→17:31)
[2022-08-26] MEDS: Aspirin 81 mg Enteric Coated Tablet PO SCH (08:48)
[2022-08-26] MEDS: Clopidogrel Bisulfate 75 MG TAB PO SCH (08:49)
[2022-08-26] MEDS: Insulin Glargine 30 UNITS/0.3 ML VIAL SC SCH (08:49)
[2022-08-26] MEDS: Sacubitril 49 MG/Valsartan 51 MG TABLET PO SCH ×2 (08:49→20:44)
[2022-08-26] MEDS: FLUoxetine HCl 20 MG CAP PO SCH (08:49)
[2022-08-26] MEDS: Heparin 5,000 UNITS/ML VIAL SC SCH ×2 (08:49→20:44)
[2022-08-26] MEDS ORDERED: Enoxaparin Sodium 30 MG/0.3 ML SYRINGE SC SCH (09:00)
[2022-08-26] MEDS: Atorvastatin Calcium 40 MG TAB PO SCH (20:43)
[2022-08-26] MEDS: Donepezil HCl 5 MG TAB PO SCH (20:44)
[2022-08-27 05:59] LABS: #Eosinphils 0.1 thou/uL (0.0-0.7); #Lymphocytes 2.2 thou/uL (1.20-3.40); #Neutrophils 5.5 thou/uL (1.40-6.50); %Basophils 0.5 % (0.0-1.0); %Eosinophils 1.3 % (0.0-10.0); %Lymphocytes 24.5 % (21.0-51.0); %Monocytes 11.3 % (0.0-10.0); %Neutrophils 62.5 % (42.0-75.0); Hemoglobin 9.9 g/dL (14.0-18.0); Mean Corpuscular HGB CONC 32.6 g/dL (32.0-36.0); Mean Corpuscular Hemoglobin 29.5 pg (27.0-31.0); Mean Corpuscular Volume 90.4 fL (78.0-98.0); Mean Platelet Volume 7.3 fL (7.4-10.4); Platelet Count 264 thou/uL (130-400); RBC Distribution Width 17.3 % (11.5-14.5); Red Blood Cell (RBC) Count 3.34 mill/uL (4.70-6.10); White Blood Cell (WBC) Count 8.9 thou/uL (4.8-10.8)
[2022-08-27 06:21] LABS: ALT (SGPT) 14 U/L (8-55); AST (SGOT) 12 U/L (5-34); Albumin 3.7 g/dL (3.5-5.0); Alkaline Phosphatase 75 U/L (40-110); Anion Gap 18 mmol/L (10-20); BUN (Urea Nitrogen) 52 mg/dL (8.4-25.7); Bilirubin, Total 0.6 mg/dL (0.2-1.2); Calc. Creatinine Clearance 0 mL/min (70-130); Calcium 9.3 mg/dL (7.8-10.44); Carbon Dioxide 23 mmol/L (22-29); Chloride 98 mmol/L (98-107); Estimated GFR 5; Globulin 2.8 g/dL (2.4-3.5); Glucose 75 mg/dL (70-105); Protein, Total 6.5 g/dL (6.0-8.3); Sodium 134 mmol/L (136-145)
[2022-08-27 07:33] LABS: Cardiac Risk 3.4 (Less than 4.5)
[2022-08-27] MEDS: Heparin 5,000 UNITS/ML VIAL SC SCH (08:28)
[2022-08-27] MEDS: Insulin Glargine 30 UNITS/0.3 ML VIAL SC SCH (08:29)
[2022-08-27] MEDS: Clopidogrel Bisulfate 75 MG TAB PO SCH (08:31)
[2022-08-27] MEDS: Carvedilol 6.25 MG TAB PO SCH (08:31)
[2022-08-27] MEDS: Sacubitril 49 MG/Valsartan 51 MG TABLET PO SCH (08:31)
[2022-08-27] MEDS: Sevelamer Carbonate 800 MG TAB PO SCH ×2 (08:31→13:10)
[2022-08-27] MEDS: Aspirin 81 mg Enteric Coated Tablet PO SCH (08:31)
[2022-08-27] MEDS: FLUoxetine HCl 20 MG CAP PO SCH (08:31)
[2022-08-27] MEDS ORDERED: NIFEdipine XL 30 MG TAB PO SCH (09:00)
[2022-08-27 12:09] VITALS: TEMP 97.7
[2022-08-27 12:10] VITALS: BMI 24.0
[2022-08-27 14:59] VITALS: BP 145/71
== END 2022-08-27 16:37 | disposition home or self-care (01) | DRG 64 ==
LOC: ERS 11:47 → NEURO 15:58
PROVIDERS: ADMIT Family Medicine; ATTEND Family Medicine
PROC: 5A1D70Z Performance of Urinary Filtration, Intermittent, Less than 6 Hours Per Day (ICD-10-PCS; principal; 2022-08-27)
DX: I63.9 Cerebral infarction, unspecified (principal); N18.6 End stage renal disease; G81.91 Hemiplegia, unspecified affecting right dominant side; I50.22 Chronic systolic (congestive) heart failure; E11.9 Type 2 diabetes mellitus without complications; I11.0 Hypertensive heart disease with heart failure; E78.5 Hyperlipidemia, unspecified; F32.A Depression, unspecified; I16.0 Hypertensive urgency; E78.00 Pure hypercholesterolemia, unspecified; I34.0 Nonrheumatic mitral (valve) insufficiency; Z20.822 Contact with and (suspected) exposure to COVID-19; Z86.73 Personal history of transient ischemic attack (TIA), and cerebral infarction without residual deficits; Z99.2 Dependence on renal dialysis; Z79.82 Long term (current) use of aspirin; Z79.4 Long term (current) use of insulin; Z79.899 Other long term (current) drug therapy
CPT/HCPCS: 36415; 36416; 70450; 70496; 70498; 70551; 71045; 80053; 80061; 84484; 85025; 85610; 85730; 90935; 93005; 94760; 96374; G0257; J0360; J1644; J1815; Q9967; U0003; U0005

== ENCOUNTER 2022-10-23 13:40 | Outpatient (CLI) | payer OTHER | END 2022-10-23 13:41 | disposition home or self-care (01) | LOC: ULT 13:40 | PROVIDERS: ATTEND Internal Medicine | DX: G45.9 Transient cerebral ischemic attack, unspecified (principal) | CPT/HCPCS: 93880 ==

== ENCOUNTER 2023-04-16 13:54 | Outpatient (CLI) | payer BC | END 2023-04-16 13:55 | disposition home or self-care (01) | LOC: ULT 13:54 | PROVIDERS: ATTEND Psychiatry & Neurology Neurology | DX: G45.9 Transient cerebral ischemic attack, unspecified (principal) | CPT/HCPCS: 93306 ==

== ENCOUNTER 2023-05-07 12:21 | Inpatient (IN) | payer BC ==
[2023-05-07 13:10] LABS: #Eosinphils 0.1 thou/uL (0.0-0.7); #Monocytes 0.4 thou/uL (0.11-0.59); %Basophils 0.7 % (0.0-1.0); %Eosinophils 1.8 % (0.0-10.0); %Lymphocytes 23.9 % (21.0-51.0); %Neutrophils 65.4 % (42.0-75.0); Hemoglobin 11.1 g/dL (14.0-18.0); Mean Corpuscular HGB CONC 33.5 g/dL (32.0-36.0); Mean Corpuscular Hemoglobin 31.4 pg (27.0-31.0); Mean Corpuscular Volume 93.5 fl (78.0-98.0); Mean Platelet Volume 11.6 fL (7.4-10.4); Platelet Count 122 10x3/uL (130-400); RBC Distribution Width 20.8 % (11.5-14.5); Red Blood Cell (RBC) Count 3.54 mill/uL (4.70-6.10); White Blood Cell (WBC) Count 4.5 10x3/uL (4.8-10.8)
[2023-05-07 14:11] LABS: Anion Gap 16 mmol/L (10-20); BUN (Urea Nitrogen) 21 mg/dL (8.4-25.7); Calc. Creatinine Clearance 0 mL/min (70-130); Carbon Dioxide 26 mmol/L (22-29); Chloride 100 mmol/L (98-107); Estimated GFR 6; Glucose 114 mg/dL (70-105); Potassium 2.7 mmol/L (3.5-5.1); Sodium 140 mmol/L (136-145)
[2023-05-07 14:12] LABS: ALT (SGPT) 15 U/L (8-55); AST (SGOT) 19 U/L (5-34); Albumin 3.8 g/dL (3.5-5.0); Alkaline Phosphatase 112 U/L (40-110); Bilirubin, Total 0.6 mg/dL (0.2-1.2); Calcium 7.8 mg/dL (7.6-10.4); Globulin 2.9 g/dL (2.4-3.5); Lipase 46 U/L (8-78); Protein, Total 6.7 g/dL (6.0-8.3)
[2023-05-07] MEDS ORDERED: Potassium Chloride 20 MEQ TAB ONE (14:43)
[2023-05-07] MEDS ORDERED: Magnesium 2 GM/50 ML BAG (IN WATER) ONE (15:18)
[2023-05-07 15:59] LABS: CKMB 1.4 ng/mL (0-6.6)
[2023-05-07] MEDS ORDERED: Acetaminophen 325 MG TAB PO PRN (17:24)
[2023-05-07] MEDS ORDERED: Ondansetron ODT 4 MG TAB PO PRN (17:24)
[2023-05-07] MEDS ORDERED: Lactated Ringer's 1,000 ML IV SCH (17:45)
[2023-05-07] MEDS ORDERED: Dextrose 50% Abboject 50 ML SYRINGE SLOW IVP PRN (18:23)
[2023-05-07] MEDS ORDERED: HumaLOG 300 UNITS/3 ML VIAL SC PRN ×2 (18:23)
[2023-05-07] MEDS ORDERED: Dextrose 5% in Water 1,000 ML IV PRN (18:23)
[2023-05-07] MEDS ORDERED: Glucagon 1 MG/ML KIT IM PRN (18:23)
[2023-05-07] MEDS ORDERED: Potassium Chloride 20 MEQ in Premix Bag 1 BAG IVPB SCH (18:45)
[2023-05-07] MEDS ORDERED: Loperamide HCl 2 MG CAP PO PRN (18:57)
[2023-05-07] MEDS ORDERED: Diphenoxylate HCl/Atropine Tablet PO PRN (18:57)
[2023-05-07] MEDS ORDERED: Amlodipine 10 MG TAB PO SCH (19:30)
[2023-05-07] MEDS: Carvedilol 25 MG TAB PO SCH (20:27)
[2023-05-07 20:45] VITALS: BMI 22.6
[2023-05-07 20:50] LABS: Troponin I 0.051 ng/mL (< 0.028)
[2023-05-07] MEDS ORDERED: Donepezil HCl 5 MG TAB PO SCH (21:00)
[2023-05-07] MEDS ORDERED: Atorvastatin Calcium 40 MG TAB PO SCH (21:00)
[2023-05-07] MEDS ORDERED: Sacubitril 49 MG/Valsartan 51 MG TABLET PO SCH (21:00)
[2023-05-07] MEDS ORDERED: Non-Formulary Item 1 EACH (Sacubitril/Valsartan [Entresto 97 Mg-103 Mg Tablet] 1 EACH Tab PO SCH (21:00)
[2023-05-07] MEDS ORDERED: Sacubitril 24MG/Valsartan 26 MG TAB PO SCH (21:00)
[2023-05-07] MEDS ORDERED: Non-Formulary Item 1 EACH (Atorvastatin Calcium [Atorvastatin Calcium] 80 MG Tablet) PO SCH (21:00)
[2023-05-07] MEDS ORDERED: Potassium Chloride 20 MEQ in Lactated Ringer's 1,000 ML IV SCH (21:15)
[2023-05-07] MEDS: hydrALAZINE 20 MG/ML VIAL SLOW IVP PRN ×2 (23:05→23:53)
[2023-05-07] MEDS: Heparin 5,000 UNITS/ML VIAL SC SCH (23:14)
[2023-05-07] MEDS ORDERED: CABOZANTINIB S MALATE 60 MG PO SCH (23:15)
[2023-05-08] MEDS ORDERED: Potassium Chloride 20 MEQ in Lactated Ringer's 1,000 ML IV SCH (00:45)
[2023-05-08 01:40] LABS: Anion Gap 13 mmol/L (10-20); BUN (Urea Nitrogen) 24 mg/dL (8.4-25.7); Calc. Creatinine Clearance 7 mL/min (70-130); Calcium 7.2 mg/dL (7.8-10.44); Carbon Dioxide 20 mmol/L (22-29); Chloride 106 mmol/L (98-107); Estimated GFR 6; Glucose 177 mg/dL (70-105); Magnesium 2.3 mg/dL (1.6-2.6); Potassium 3.2 mmol/L (3.5-5.1); Sodium 136 mmol/L (136-145)
[2023-05-08] MEDS ORDERED: hydrALAZINE 25 MG TAB PO SCH (02:00)
[2023-05-08 04:57] LABS: #Eosinphils 0.1 thou/uL (0.0-0.7); #Monocytes 0.5 thou/uL (0.11-0.59); #Neutrophils 3.4 thou/uL (1.40-6.50); %Basophils 0.7 % (0.0-1.0); %Eosinophils 2.2 % (0.0-10.0); %Monocytes 9.1 % (0.0-10.0); %Neutrophils 63.8 % (42.0-75.0); Hemoglobin 10.6 g/dL (14.0-18.0); Mean Corpuscular HGB CONC 32.9 g/dL (32.0-36.0); Mean Corpuscular Hemoglobin 31.2 pg (27.0-31.0); Mean Corpuscular Volume 94.7 fl (78.0-98.0); Mean Platelet Volume 10.6 fL (7.4-10.4); Platelet Count 106 10x3/uL (130-400); RBC Distribution Width 20.6 % (11.5-14.5); White Blood Cell (WBC) Count 5.4 10x3/uL (4.8-10.8)
[2023-05-08 05:22] LABS: ALT (SGPT) 13 U/L (8-55); AST (SGOT) 19 U/L (5-34); Albumin 3.2 g/dL (3.5-5.0); Alkaline Phosphatase 90 U/L (40-110); Anion Gap 14 mmol/L (10-20); BUN (Urea Nitrogen) 25 mg/dL (8.4-25.7); Bilirubin, Total 0.6 mg/dL (0.2-1.2); Calc. Creatinine Clearance 7 mL/min (70-130); Calcium 7.2 mg/dL (7.8-10.44); Carbon Dioxide 20 mmol/L (22-29); Chloride 107 mmol/L (98-107); Estimated GFR 6; Globulin 2.7 g/dL (2.4-3.5); Glucose 102 mg/dL (70-105); Potassium 3.2 mmol/L (3.5-5.1); Protein, Total 5.9 g/dL (6.0-8.3); Sodium 138 mmol/L (136-145)
[2023-05-08] MEDS: Carvedilol 25 MG TAB PO SCH (08:39)
[2023-05-08] MEDS: Heparin 5,000 UNITS/ML VIAL SC SCH ×2 (08:40→14:58)
[2023-05-08] MEDS ORDERED: Sacubitril 24MG/Valsartan 26 MG TAB PO SCH (09:00)
[2023-05-08] MEDS ORDERED: Potassium Chloride 20 MEQ TAB PO SCH (09:00)
[2023-05-08] MEDS ORDERED: FLUoxetine HCl 20 MG CAP PO SCH (09:00)
[2023-05-08] MEDS ORDERED: Amlodipine 10 MG TAB PO SCH ×2 (09:00→21:00)
[2023-05-08] MEDS ORDERED: CABOZANTINIB S MALATE 60 MG PO SCH (09:00)
[2023-05-08] MEDS ORDERED: Aspirin 81 mg Enteric Coated Tablet PO SCH (09:00)
[2023-05-08] MEDS ORDERED: Clopidogrel Bisulfate 75 MG TAB PO SCH (09:00)
[2023-05-08 17:13] VITALS: BP 109/59; TEMP 97.9
== END 2023-05-08 16:45 | disposition home or self-care (01) | DRG 393 ==
LOC: ERS 12:21 → 2NO 17:05
PROVIDERS: ADMIT Student in an Organized Health Care Education/Training Program; ATTEND Student in an Organized Health Care Education/Training Program
DX: K52.1 Toxic gastroenteritis and colitis (principal); N18.6 End stage renal disease; C64.9 Malignant neoplasm of unspecified kidney, except renal pelvis; C78.00 Secondary malignant neoplasm of unspecified lung; I13.2 Hypertensive heart and chronic kidney disease with heart failure and with stage 5 chronic kidney disease, or end stage renal disease; I50.22 Chronic systolic (congestive) heart failure; E86.0 Dehydration; E87.6 Hypokalemia; E11.22 Type 2 diabetes mellitus with diabetic chronic kidney disease; D63.1 Anemia in chronic kidney disease; E78.5 Hyperlipidemia, unspecified; F32.A Depression, unspecified; I50.9 Heart failure, unspecified; T45.1X5A Adverse effect of antineoplastic and immunosuppressive drugs, initial encounter; Z79.82 Long term (current) use of aspirin; Z79.899 Other long term (current) drug therapy; Z79.4 Long term (current) use of insulin; Z90.5 Acquired absence of kidney; Z86.73 Personal history of transient ischemic attack (TIA), and cerebral infarction without residual deficits; Z99.2 Dependence on renal dialysis; Z98.890 Other specified postprocedural states
CPT/HCPCS: 36415; 36416; 80053; 82553; 83690; 83735; 83880; 84484; 85025; 87324; 87449; 93005; 96361; 96365; J0360; J1644; J3475; J3480; J7120

== ENCOUNTER 2023-08-20 08:35 | Outpatient (CLI) | payer MEDICARE ==
[2023-08-20] MEDS ORDERED: Iopamidol 370 76% 100 ML VIAL ONE (09:23)
== END 2023-08-20 08:36 | disposition home or self-care (01) ==
LOC: CT 08:35
PROVIDERS: ATTEND Internal Medicine Hematology & Oncology
DX: C64.2 Malignant neoplasm of left kidney, except renal pelvis (principal); R91.1 Solitary pulmonary nodule; K63.89 Other specified diseases of intestine; N32.89 Other specified disorders of bladder
CPT/HCPCS: 71260; 74177; 78306; A9503

== ENCOUNTER 2023-09-12 08:05 | Emergency (ER) | payer MEDICARE ==
[2023-09-12 09:18] LABS: SARS-CoV-2 NAA Rapid Test Not Detected (NotDetected)
== END 2023-09-12 10:55 | disposition home or self-care (01) ==
LOC: ERS 08:05
DX: R05.9 Cough, unspecified (principal); E11.40 Type 2 diabetes mellitus with diabetic neuropathy, unspecified; I10 Essential (primary) hypertension; E78.00 Pure hypercholesterolemia, unspecified; Z20.822 Contact with and (suspected) exposure to COVID-19; Z79.899 Other long term (current) drug therapy
CPT/HCPCS: 0240U; 71045

== ENCOUNTER 2023-12-16 08:20 | Outpatient (CLI) | payer MEDICARE, OTHER ==
[2023-12-16] MEDS ORDERED: Iopamidol 370 76% 100 ML VIAL ONE (10:50)
== END 2023-12-16 08:21 | disposition home or self-care (01) ==
LOC: NM 08:20
PROVIDERS: ATTEND Internal Medicine Hematology & Oncology
DX: C64.9 Malignant neoplasm of unspecified kidney, except renal pelvis (principal); K63.89 Other specified diseases of intestine; R91.1 Solitary pulmonary nodule; N62 Hypertrophy of breast; M89.9 Disorder of bone, unspecified; N32.89 Other specified disorders of bladder; N28.9 Disorder of kidney and ureter, unspecified; R93.422 Abnormal radiologic findings on diagnostic imaging of left kidney; Z90.5 Acquired absence of kidney; Z99.2 Dependence on renal dialysis
CPT/HCPCS: 71260; 74177; 78306; A9503

== ENCOUNTER 2024-04-30 08:48 | Outpatient (CLI) | payer MEDICARE | END 2024-04-30 08:49 | disposition home or self-care (01) | LOC: NM 08:48 | PROVIDERS: ATTEND Internal Medicine Hematology & Oncology | DX: C64.2 Malignant neoplasm of left kidney, except renal pelvis (principal); Z79.899 Other long term (current) drug therapy; Z90.5 Acquired absence of kidney; E27.9 Disorder of adrenal gland, unspecified; K76.9 Liver disease, unspecified; R18.8 Other ascites | CPT/HCPCS: 71260; 74177; 78306; A9503 ==

== ENCOUNTER 2024-08-11 07:34 | Outpatient (CLI) | payer MEDICARE ==
[2024-08-11] MEDS ORDERED: Iopamidol 370 76% 100 ML VIAL ONE (10:30)
== END 2024-08-11 07:35 | disposition home or self-care (01) ==
LOC: CT 07:34
PROVIDERS: ATTEND Internal Medicine Hematology & Oncology
DX: C64.2 Malignant neoplasm of left kidney, except renal pelvis (principal); E27.9 Disorder of adrenal gland, unspecified; Z90.5 Acquired absence of kidney; Z79.899 Other long term (current) drug therapy
CPT/HCPCS: 71260; 74177; 78306; A9503; Q9967

== ENCOUNTER 2025-08-03 08:35 | Outpatient (CLI) | payer MEDICARE ==
[2025-08-03] MEDS ORDERED: Iopamidol 370 76% 100 ML VIAL ONE ×2 (13:11→13:12)
== END 2025-08-03 08:36 | disposition home or self-care (01) ==
LOC: CT 08:35
PROVIDERS: ATTEND Internal Medicine Hematology & Oncology
DX: C64.2 Malignant neoplasm of left kidney, except renal pelvis (principal); R91.1 Solitary pulmonary nodule; E27.8 Other specified disorders of adrenal gland; R18.8 Other ascites; I51.7 Cardiomegaly; I25.10 Atherosclerotic heart disease of native coronary artery without angina pectoris; Z90.5 Acquired absence of kidney; Z79.899 Other long term (current) drug therapy
CPT/HCPCS: 71260; 74177; 78306; A9503; Q9967

== ENCOUNTER 2025-08-06 10:49 | Inpatient (IN) | payer MEDICARE ==
[~2025-08-06 10:49] MED LIST: Iopamidol 370 76% 100 ML VIAL ONE
[2025-08-06] MEDS ORDERED: Norepinephrine 8 MG/0.9% NS 250 ML ONE (10:54)
[2025-08-06] MEDS ORDERED: Aspirin Chewable 81 MG TAB ONE (11:07)
[2025-08-06] MEDS ORDERED: Dextrose 50% Abboject 50 ML SYRINGE ONE (11:07)
[2025-08-06] MEDS ORDERED: Heparin 10,000 UNITS/ 10 ML VIAL ONE ×2 (11:07→11:17)
[2025-08-06] MEDS ORDERED: Aspirin 325 MG TAB ONE (11:08)
[2025-08-06 11:15] LABS: Analyzer IN Cardio ER; Base Excess (BEa) -20.8 mEq/L (-2.0 to +3.0); CO2 Tension 38.6 mmHg (35.0-45.0); Calcium, Ionized (arterial) 1.00 mmol/L (1.12-1.30); Hematocrit-ABG 36 % (42.0-52.0); Hemoglobin (Hb) 12.2 g/dL (14.0-18.0); O2 Tension (PaO2), arterial 628.3 mmHg (80.0-100.0); Potassium - ABG Lab 5.07 mmol/L (3.70-5.30)
[2025-08-06 11:16] LABS: Actual Bicarbonate (HCO3a) 9.5 mEq/L (22-28); Puncture Site Right Brachial art; pH, Arterial 7.010 (7.35-7.45)
[2025-08-06 11:17] LABS: ALV-art Gradient 36.450 mmHg (0-20)
[2025-08-06] MEDS ORDERED: Adenosine 6 mg (2 mL) VIAL ONE (11:17)
[2025-08-06] MEDS ORDERED: EPINEPHrine 1 MG/10 ML Abboject SYRINGE ONE (11:17)
[2025-08-06] MEDS ORDERED: Nitroglycerin 50 MG/250 ML BOT 0 ML ONE (11:18)
[2025-08-06] MEDS ORDERED: Lidocaine 1% (PF) 30 ML VIAL ONE (11:18)
[2025-08-06] MEDS ORDERED: PHENYLEPHRINE-NS 100 MCG/ML 10 ML SYRINGE ONE (11:18)
[2025-08-06 11:45] LABS: Base Excess -19.4 mEq/L (-2.0 to +3.0); Calcium, Ionized (venous) 0.94 mmol/L (1.16-1.32); Chloride (VBG) 95 mmol/L (98-106); Hematocrit-VBG 36 % (42.0-52.0); Hemoglobin (Hb) 12.3 g/dL (13.1-17.2); Potassium (VBG) 5.72 mmol/L (3.70-5.30); Sodium 134 mmol/L (133-146)
[2025-08-06 11:49] LABS: Actual Bicarbonate (HCO3v) 12.6 mEq/L (22-28)
[2025-08-06 12:01] LABS: ALT (SGPT) 1010 U/L (Less than 45); AST (SGOT) 1469 U/L (11-34); Albumin 2.4 g/dL (3.1-4.5); Alkaline Phosphatase 89 U/L (40-110); Anion Gap 31 mmol/L (10-20); BUN (Urea Nitrogen) 42 mg/dL (8.4-25.7); Bilirubin, Total 0.8 mg/dL (0.3-1.2); Calc. Creatinine Clearance 0 mL/min (70-130); Calcium 7.1 mg/dL (7.8-10.44); Carbon Dioxide 14 mmol/L (22-29); Chloride 97 mmol/L (98-107); Globulin 2.6 g/dL (2.4-3.5); Glucose 256 mg/dL (70-105); Potassium 5.9 mmol/L (3.5-5.1); Sodium 136 mmol/L (136-145)
[2025-08-06 12:11] LABS: #Basophils 0.03 10x3/uL (0.0-0.2); #Eosinophils 0.06 10x3/uL (0.0-0.7); #Monocytes 0.28 10x3/uL (0.11-0.59); #Neutrophils 4.74 10x3/uL (1.40-6.50); %Basophils 0.5 % (0.0-1.0); %Eosinophils 0.9 % (0.0-10.0); %Lymphocytes 18.7 % (21.0-51.0); %Monocytes 4.4 % (0.0-10.0); %Neutrophils 73.9 % (42.0-75.0); Anisocytosis SLIGHT = 6-15 cells HPF (0-5); Hematocrit 37.0 % (42.0-52.0); Hemoglobin 10.9 g/dL (14.0-18.0); Macrocytosis SLIGHT = 6-15 cells HPF (0-5); Mean Corpuscular Hemoglobin 31.9 pg (27.0-31.0); Mean Corpuscular Volume 108.2 fL (78.0-98.0); Platelet Adequacy Comment Platelets Decreased; Platelet Count 29 10x3/uL (130-400); Poikilocytosis MARKED = >30 cells HPF (0-5); Polychromasia SLIGHT = 2-3 cells HPF (0-2); Red Blood Cell (RBC) Count 3.42 mill/uL (4.70-6.10); White Blood Cell (WBC) Count 6.41 10x3/uL (4.8-10.8)
[2025-08-06] MEDS ORDERED: Heparin 10,000 UNITS/ 10 ML VIAL SLOW IVP SCH (14:30)
[2025-08-06] MEDS ORDERED: NOREPINEPHRINE 8 MG/250 ML-D5W 250 ML IVPB SCH (14:30)
[2025-08-06] MEDS ORDERED: Sodium Bicarbonate 25 MEQ in Dextrose 5% in Water 1,000 ML FS SCH (15:00)
[2025-08-06 15:05] LABS: Base Excess (BEa) -11.7 mEq/L (-2.0 to +3.0); CO2 Tension 32.1 mmHg (35.0-45.0); Calcium, Ionized (arterial) 0.85 mmol/L (1.12-1.30); Hematocrit-ABG 33 % (42.0-52.0); Hemoglobin (Hb) 11.2 g/dL (14.0-18.0); O2 Tension (PaO2), arterial 284.4 mmHg (80.0-100.0); Potassium - ABG Lab 5.92 mmol/L (3.70-5.30); pH, Arterial 7.262 (7.35-7.45)
[2025-08-06 15:08] LABS: ALV-art Gradient 103.275 mmHg (0-20); Actual Bicarbonate (HCO3a) 14.1 mEq/L (22-28); Puncture Site Left Brachial artery
[2025-08-06] MEDS: Albumin 5% 12.5 GM (250 mL) BOT IVPB SCH (15:45)
[2025-08-06 15:49] LABS: #Basophils Less than 0.03 10x3/uL (0.0-0.2); #Eosinophils 0.03 10x3/uL (0.0-0.7); #Monocytes 0.27 10x3/uL (0.11-0.59); #Neutrophils 11.03 10x3/uL (1.40-6.50); %Basophils 0.2 % (0.0-1.0); %Eosinophils 0.2 % (0.0-10.0); %Lymphocytes 5.8 % (21.0-51.0); %Monocytes 2.2 % (0.0-10.0); %Neutrophils 90.9 % (42.0-75.0); Hematocrit 32.1 % (42.0-52.0); Hemoglobin 10.3 g/dL (14.0-18.0); Mean Corpuscular Hemoglobin 32.9 pg (27.0-31.0); Mean Corpuscular Volume 102.6 fL (78.0-98.0); Platelet Count 38 10x3/uL (130-400); Red Blood Cell (RBC) Count 3.13 mill/uL (4.70-6.10); White Blood Cell (WBC) Count 12.13 10x3/uL (4.8-10.8)
[2025-08-06 16:03] VITALS: BMI 21.0
[2025-08-06 16:29] LABS: PTT Greater than 250.0 sec (22.9-36.1)
[2025-08-06] MEDS: Norepinephrine 8 MG/0.9% NS 250 ML IVPB SCH (16:56)
[2025-08-06] MEDS: Norepinephrine 8 MG/0.9% NS 250 ML ONE (16:58)
[2025-08-06] MEDS ORDERED: Vasopressin In 0.9 % NaCl 40 UNIT in Premix 1 BAG IV PRN (17:38)
[2025-08-06 18:56] LABS: PTT 242.3 sec (22.9-36.1)
[2025-08-06] MEDS ORDERED: TICAGRELOR 90 MG TABLET PER TUBE SCH (21:00)
[2025-08-06] MEDS ORDERED: Mupirocin 1 GM TUBE NASAL DECOLONIZATION NASAL SCH (21:00)
[2025-08-06 21:08] VITALS: TEMP 96.4
[2025-08-07] MEDS ORDERED: Aspirin Chewable 81 MG TAB PER TUBE SCH (09:00)
[2025-08-13 11:11] LABS: BLOX Site Right atrium
[2025-08-13 11:12] LABS: BLOX Site Aorta; BLOX Site Pulmonary artery
== END 2025-08-06 19:37 | disposition expired | DRG 215 ==
LOC: ERS 10:49 → CCU 14:33
PROVIDERS: ADMIT Internal Medicine; ATTEND Internal Medicine
PROC: 02713ZZ Dilation of Coronary Artery, Two Arteries, Percutaneous Approach (ICD-10-PCS; principal; 2025-08-06)
PROC: 02HA3RZ Insertion of Short-term External Heart Assist System into Heart, Percutaneous Approach (ICD-10-PCS; 2025-08-06)
PROC: 5A0221D Assistance with Cardiac Output using Impeller Pump, Continuous (ICD-10-PCS; 2025-08-06)
PROC: 5A2204Z Restoration of Cardiac Rhythm, Single (ICD-10-PCS; 2025-08-06)
PROC: B2111ZZ Fluoroscopy of Multiple Coronary Arteries using Low Osmolar Contrast (ICD-10-PCS; 2025-08-06)
PROC: 06HY33Z Insertion of Infusion Device into Lower Vein, Percutaneous Approach (ICD-10-PCS; 2025-08-06)
PROC: 4A023N8 Measurement of Cardiac Sampling and Pressure, Bilateral, Percutaneous Approach (ICD-10-PCS; 2025-08-06)
PROC: 4A133R1 Monitoring of Arterial Saturation, Peripheral, Percutaneous Approach (ICD-10-PCS; 2025-08-06)
PROC: 5A1935Z Respiratory Ventilation, Less than 24 Consecutive Hours (ICD-10-PCS; 2025-08-06)
PROC: 3E033XZ Introduction of Vasopressor into Peripheral Vein, Percutaneous Approach (ICD-10-PCS; 2025-08-06)
PROC: 30233J1 Transfusion of Nonautologous Serum Albumin into Peripheral Vein, Percutaneous Approach (ICD-10-PCS; 2025-08-06)
PROC: 0BH17EZ Insertion of Endotracheal Airway into Trachea, Via Natural or Artificial Opening (ICD-10-PCS; 2025-08-06)
PROC: 0D9670Z Drainage of Stomach with Drainage Device, Via Natural or Artificial Opening (ICD-10-PCS; 2025-08-06)
PROC: B2151ZZ Fluoroscopy of Left Heart using Low Osmolar Contrast (ICD-10-PCS; 2025-08-06)
PROC: 02HP32Z Insertion of Monitoring Device into Pulmonary Trunk, Percutaneous Approach (ICD-10-PCS; 2025-08-06)
PROC: 4A133B3 Monitoring of Arterial Pressure, Pulmonary, Percutaneous Approach (ICD-10-PCS; 2025-08-06)
PROC: 4A1239Z Monitoring of Cardiac Output, Percutaneous Approach (ICD-10-PCS; 2025-08-06)
PROC: 3E043XZ Introduction of Vasopressor into Central Vein, Percutaneous Approach (ICD-10-PCS; 2025-08-06)
DX: I21.29 ST elevation (STEMI) myocardial infarction involving other sites (principal); N18.6 End stage renal disease; E11.641 Type 2 diabetes mellitus with hypoglycemia with coma; I13.2 Hypertensive heart and chronic kidney disease with heart failure and with stage 5 chronic kidney disease, or end stage renal disease; E87.20 Acidosis, unspecified; C64.9 Malignant neoplasm of unspecified kidney, except renal pelvis; I47.20 Ventricular tachycardia, unspecified; C64.2 Malignant neoplasm of left kidney, except renal pelvis; R18.8 Other ascites; Z66 Do not resuscitate; I49.01 Ventricular fibrillation; Z99.2 Dependence on renal dialysis; E03.9 Hypothyroidism, unspecified; F32.A Depression, unspecified; I25.10 Atherosclerotic heart disease of native coronary artery without angina pectoris; I25.5 Ischemic cardiomyopathy; R57.0 Cardiogenic shock; I50.82 Biventricular heart failure; I46.2 Cardiac arrest due to underlying cardiac condition; I25.84 Coronary atherosclerosis due to calcified coronary lesion; I34.0 Nonrheumatic mitral (valve) insufficiency; I27.20 Pulmonary hypertension, unspecified; E11.22 Type 2 diabetes mellitus with diabetic chronic kidney disease; Z79.82 Long term (current) use of aspirin; Z79.4 Long term (current) use of insulin; Z86.73 Personal history of transient ischemic attack (TIA), and cerebral infarction without residual deficits; Z98.890 Other specified postprocedural states; Z90.79 Acquired absence of other genital organ(s); Z79.02 Long term (current) use of antithrombotics/antiplatelets; Z79.899 Other long term (current) drug therapy; Z90.5 Acquired absence of kidney; E87.5 Hyperkalemia; E78.5 Hyperlipidemia, unspecified; E11.42 Type 2 diabetes mellitus with diabetic polyneuropathy; E11.51 Type 2 diabetes mellitus with diabetic peripheral angiopathy without gangrene; R74.01 Elevation of levels of liver transaminase levels; R91.1 Solitary pulmonary nodule; E27.8 Other specified disorders of adrenal gland; I70.90 Unspecified atherosclerosis
CPT/HCPCS: 31500; 33990; 36415; 36556; 36600; 71045; 71260; 74177; 78306; 80053; 82805; 82810; 83605; 83615; 84484; 85018; 85025; 85347; 85730; 92941; 92950; 93005; 93306; 93460; 94002; 96365; 96375; 99152; 99153; A9503; C1725; C1751; C1760; C1769; C1887; C1894; C1984; C9606; G0278; J0153; J0165; J0282; J0461; J1644; J3490; J7030; J7070; J7999; P9045; Q9967